=== PATIENT | male | born 1965 | race Caucasian/White ===

== ENCOUNTER 2016-09-16 09:29 | Day surgery (SDC) | payer OTHER ==
[2016-09-16] MEDS ORDERED: D5 LR 1000 ML 1,000 ML IV ONE (10:13)
[2016-09-16] MEDS ORDERED: DIPRIVAN VIAL 20 ML ONE (11:24)
[2016-09-16 14:23] VITALS: BP 119/65
== END 2016-09-16 12:05 | disposition home or self-care (01) ==
LOC: SURG1 09:29
PROVIDERS: ATTEND Internal Medicine Gastroenterology
PROC: 0DJD8ZZ Inspection of Lower Intestinal Tract, Via Natural or Artificial Opening Endoscopic (ICD-10-PCS; principal; 2016-09-16 13:00)
PROC: 0DBP8ZX Excision of Rectum, Via Natural or Artificial Opening Endoscopic, Diagnostic (ICD-10-PCS; principal; 2016-09-16 13:00)
DX: Z12.11 Encounter for screening for malignant neoplasm of colon (principal); K63.5 Polyp of colon; K64.8 Other hemorrhoids
CPT/HCPCS: A4217; J3490; J7120

== ENCOUNTER 2020-07-22 18:12 | Inpatient (IN) ==
[2020-07-22 18:36] VITALS: BMI 36.1
--- NOTE | 2020-07-22 19:08 | DR.SOBA ---
HPI Time Seen Time Seen by Provider: 07/22/20 18:47 Primary Care Physician Primary Care Physician: Megan Patterson HPI Comment HPI Comment: PATIENT IS Complaints Chief Complaint Doctors Comments: INCREASING SOB ABD RAPID HEART RATE. PATIENT HAVE HISTORY OF COPD AND A FIB. WAS IN ER YESTERDAY WITH ELEVATED COUMADIN LEVEL. THIS WAS TRATED WITH VITAMIN K. HE WAS HAVING HEMOPTESIS YESTERDAY. TODAY COUGHING, PRODUCTIVE WITH YELLOW SPUTUM. NO FEVER. PATIENT WEAK AND TIRED. HAD COVID 19 VIRUS INFECTION RECENTLY. Chief Complaint:: Patient stated worsening cough and shortness of breath. Pt stated he was discharged from ER last night after he thought he was being admitted. Pt stated he did not follow up with his PCP to get his INR rechecked and that he was unable to start his antibiotics. Pt stated he was in and out of the hospital since april due to COVID. COVID-19 Coronavirus risk:travel/contact w/high risk person: No Has patient experienced Coronavirus symptoms: No Reviewed Nurses Notes Reviewed: Yes Source History Provided: Patient Mode of Arrival Mode of Arrival: Ambulatory Timing Onset of Chief Complaint: 07/14/20 Context Onset:: At Rest PE Risk Factors:: None History of:: COPD Currently on:: Inhaled Bronchodilators Prehospital Care:: O2 and Inhaled B2 Modifying Factors Worsens:: Exertion Improves:: Sitting Up Associated Signs and Symptoms Associated Signs and Symptoms: Cough, Nasal Congestion, Chest Pain (TIGHTNESS.) and Leg Swelling If Chest Pain Quality: Pleuritic Location: Substernal If Cough Cough: Productive and Yellow PMH PMH Past Medical History: Yes Past Medical History: Anxiety, CHF, COPD, Hypertension and [place] Past Medical History Comment: Atrial fibrillation Past Surgical History: Yes Surgical History: Tonsillectomy Family History History of Family Medical Conditions: Yes Family Medical History: [place] and Heart Failure Social History Does patient currently use any type of tobacco product: Yes Have you used tobacco products in the last 12 months: Yes Type of Tobacco Use: Cigarettes Alcohol Use: Heavy and DAILY Do you use any recreational Drugs:: Yes Lives With: Significant Other Lives Where: Home Infectious screening In the last 2 months have you had wt loss of >10#?: NO Have you had fever, night sweats or hemotysis?: No Have you traveled outside the country in the last 6 months?: No Isolation: Droplet ROS Review of Systems Constitutional: See HPI, Weakness and Fatigue; negative Fever Eyes: No Symptoms Reported and See HPI ENTM: See HPI, Nose Discharge and Nose Congestion Respiratoy: See HPI, Productive Cough, Short of Breath and Wheezing Cardiovascular: See HPI, Chest Pain and Edema Gastrointestinal/Abdominal: No Symptoms Reported and See HPI; negative Abdominal Pain, Diarrhea and Vomiting Genitourinary: No Symptoms Reported and See HPI; negative Dysuria, Frequency and Hematuria Neurological: See HPI and Weakness; negative Headache and Dizziness Musculoskeletal: See HPI, Hip (LEFT HIP) and Leg (LEFT LEG.) Integumentary: No Symptoms Reported and See HPI; negative Change in Color, Rash and Juandice Hematologic/Lymphatic: No Symptoms Reported and See HPI; negative Easy Bruising and Swollen Glands Endocrine: No Symptoms Reported and See HPI; negative Increased Thirst and Increased Urine Psychiatric: No Symptoms Reported and See HPI All Other Systems: Reviewed and Negative PE Vital Signs Vitals: Temperature 97.7 F Pulse Rate 93 Respiratory Rate 23 Blood Pressure [Left Arm] 126/60 Blood Pressure 130/77 O2 Sat by Pulse Oximetry 92 General Limitations: No Limitations General Appearance: Alert and In Distress Head Head Exam: Normal Inspection and Atraumatic Eyes Eye exam: Normal Appearance and PERRL; negative Scleral Icterus and Conjunctival Injection ENT ENT Exam: Normal Exam, Normal Oropharynx, Normal External Ear Exam and TM's Normal Bilaterally Neck Neck Exam: Normal Inspection and Trachea Midline; negative Tenderness and Lymphadenopathy Chest Chest Inspection: Normal Inspection and Symmetric Chest Wall Rise; negative Tenderness Respiratory Respiratory Exam: Normal Lung Sounds Bilat; negative Accessory Muscle Use, Chest Wall Tenderness and Respiratory Distress Respiratory Exam: Bilateral: Wheezing and Bilateral: Rhonchi and Lower: Wheezing and Lower: Rhonchi Cardiovascular Cardiovascular Exam: Regular Rate, Normal Rhythm and Normal Heart Sounds; negative Systolic Murmur and Diastolic Murmur Abdominal Exam Abdominal Exam: Normal Inspection, Normal Bowel Sounds and Soft; negative Tenderness Extremities Extremities Exam: Normal Inspection, Normal Capillary Refill and Edema; negative Tenderness and Calf Tenderness Back Back Exam: Normal Inspection; negative (R) CVA Tenderness and (L) CVA Tenderness Neurologic Neurological Exam: Alert and Oriented X3; negative Motor Sensory Deficit Psychiatric Psychiatric Exam: Normal Affect and Anxious Skin Skin Exam: Warm, Dry, Intact and Normal Color MDM Additional Information Obtained Additional Information Obtained From: Old Records Differential Diagnosis Differential Diagnosis: Bronchitis, CHF, COPD, Dysrhythmia, Hypertensive Emergency, Hyponatremia, Mycardial Infarction, Pneumonia, Pneumothorax and Respiratory Insufficiency COURSE Treatment Treatment: SEE ORDERS. SOLUMEDROL 125MG IV, CARDIOZEM 10MG IV, METROPOLOL 50MG PO X 2 AND [id number] CLORIDE 20MG PO IN ER. Reevaluation 1st: Improved (SOB IMPROVING WITH OXYGEN.) Consultation Consultation Comments: DISCUSSED PATIENT WITH DR. MURRELL. HE WILL ADMIT PATIENT. Education/Counseling Education/Counseling: Patient Educated On: Diagnosis ROR Labs Reviewed Laboratory Results Reviewed?: Yes Result Diagrams: 07/24/20 05:35 07/24/20 05:35 Laboratory: WBC 13.2 X10^3/uL (3.6-10.0) H 07/22/20 18: RBC 5.77 X10^6/uL (4.7-6.0) 07/22/20 18: Hgb 17.6 g/dL (13.5-18.0) 07/22/20 18: Hct 51.5 % (42.0-54.0) 07/22/20 18: MCV 89.4 fL (80.0-100.0) 07/22/20 18: MCH 30.5 pg (27.0-34.0) 07/22/20 18: MCHC 34.1 g/dL (33.0-35.0) 07/22/20 18: RDW 14.2 % (11.6-16.5) 07/22/20 18: Plt Count 300 X10^3/uL (150.0-450.0) 07/22/20 18: MPV 7.7 fL (7.4-11.0) 07/22/20 18: Neut % (Auto) 76.4 % (42.0-75.0) H 07/22/20 18: Lymph % (Auto) 11.1 % (21.0-51.0) L 07/22/20 18: [place] % (Auto) 12.2 % (0.0-13.0) 07/22/20 18: Eos % (Auto) 0.1 % (0.9-2.9) L 07/22/20 18: Baso % (Auto) 0.2 % (0.2-1.0) 07/22/20 18: Neut # (Auto) 10.1 x10^3/uL (2.2-4.8) H 07/22/20 18: Lymph # (Auto) 1.5 X10^3/uL (1.3-2.9) 07/22/20 18: [place] # (Auto) 1.6 x10^3/uL (0.3-0.8) H 07/22/20 18: Eos # (Auto) 0.0 x10^3/uL (0.0-0.2) 07/22/20 18: Baso # (Auto) 0.0 X10^3/uL (0.0-0.1) 07/22/20 18: Absolute Nucleated RBC 0.1 /100WBC 07/22/20 18: PT 18.1 SECONDS (11.8-14.3) 07/22/20 18: INR Target Range - 07/22/20 18: INR 1.54 (0.8-1.3) H 07/22/20 18: APTT 29.2 SECONDS (22.9-36.5) 07/22/20 18: PTT Comment - 07/22/20 18: Sample Site Lr 07/22/20 20:15 ABG pH 7.540 (7.35-7.45) H 07/22/20 20:15 ABG pCO2 48.0 mmHg (35.0-45.0) H 07/22/20 20:15 ABG pO2 61.0 mmHg (80.0-100.0) L 07/22/20 20:15 ABG HCO3 41.0 mmol/L (22-26) H* 07/22/20 20:15 ABG O2 Saturation 94.0 % (90-100) 07/22/20 20:15 ABG Base Excess 16.3 mmol/L (-2.0-2.0) H 07/22/20 20:15 Wyatt Test Pos 07/22/20 20:15 A-a Gradient 107.0 mmHg 07/22/20 20:15 FiO2 32.0 07/22/20 20:15 Blood Gas Comments Dora well ae 07/22/20 20:15 Sodium 133 mmol/L (136-145) L 07/22/20 18:29 Corrected Sodium 136 mmol/L (136-145) 07/22/20 18: Potassium 3.2 mmol/L (3.5-5.1) L 07/22/20 18: Chloride 90 mmol/L (98-107) L 07/22/20 18: Carbon Dioxide 37.3 mmol/L (21-32) H 07/22/20 18: BUN 13 mg/dL (7-18) 07/22/20 18: Creatinine 0.92 mg/dL (0.70-1.30) 07/22/20 18:29 Est GFR (MDRD) Af Amer > 60 (>60) 07/22/20 18: Est GFR (MDRD) Non-Af > 60 (>60) 07/22/20 18: Glucose 224 mg/dL (65-99) H 07/22/20 18: Calcium 10.0 mg/dL (8.5-10.1) 07/22/20 18: Corrected Calcium 10.6 mg/dL (8.5-10.1) H 07/22/20 18: Total Bilirubin 0.50 mg/dL (0.2-1.0) 07/22/20 18: AST 7 Units/L (15-37) L 07/22/20 18: ALT 19 Units/L (12-78) 07/22/20 18: Alkaline Phosphatase 72 Units/L (46-116) 07/22/20 18: Creatine Kinase 48 Units/L (39-308) 07/22/20 18: CK-MB (CK-2) 1.6 ng/mL (0-4.0) 07/22/20 18: CK/CKMB % Calc 3.3 % (<4) 07/22/20: Troponin I < 0.02 ng/mL (0-1.5) 07/22/20 18: Total Protein 7.2 g/dL (6.4-8.2) 07/22/20 18: Albumin 3.3 g/dL (3.4-5.0) L 07/22/20 18: Globulin 3.9 g/dL (2.5-4.5) 07/22/20 18: Albumin/Globulin Ratio 0.8 Ratio (1.1-2.1) L 07/22/20 18:29 SARS-CoV-2 (PCR) Negative (NEGATIVE) 07/22/20 23:20 Influenza Type A (PCR) Negative (NEGATIVE) 07/22/20 23:20 Influenza Type B (PCR) Negative (NEGATIVE) 07/22/20 23:20 RSV (PCR) Negative (NEGATIVE) 07/22/20 23:20 XRAY XRAY Interpreted by: Radiologist (REPORT NOTED AND DISCUSSED WITH PATIENT.) and Self EKG Rate: 111 [place]: LAD Rhythm: Afib Block: IVCD Hypertrophy: None ST: Nonsp Opioid Opioid Risk Tool Age (Ramirez box if 16-45): No History of Preadolescent Sexual Abuse: No Total: 0 Total Score Risk Category: Low Risk Copyright: Perico DUNAWAY predicting aberrant behaviors Diagnosis Discharge Problem: Atrial fibrillation with RVR, COPD exacerbation, Shortness of breath Instructions Forms: Precautions for COVID19 Patient Portal Social Distancing
[2020-07-22] MEDS ORDERED: SOLU-Medrol 125 MG VIAL IVP ONE (19:33)
[2020-07-22] MEDS ORDERED: SOLU-Medrol 125 MG VIAL ONE ×2 (19:35)
[2020-07-22 19:36] LABS: BASOPHILS % (AUTO) 0.2 % (0.2-1.0); EOSINOPHILS % (AUTO) 0.1 % (0.9-2.9); HEMATOCRIT 51.5 % (42.0-54.0); HEMOGLOBIN 17.6 g/dL (13.5-18.0); LYMPHOCYTES # (AUTO) 1.5 X10^3/uL (1.3-2.9); LYMPHOCYTES % (AUTO) 11.1 % (21.0-51.0); MEAN CORPUSCULAR HEMOGLOBIN 30.5 pg (27.0-34.0); MEAN CORPUSCULAR HGB CONC 34.1 g/dL (33.0-35.0); MEAN CORPUSCULAR VOLUME 89.4 fL (80.0-100.0); MEAN PLATELET VOLUME 7.7 fL (7.4-11.0); MONOCYTES # (AUTO) 1.6 x10^3/uL (0.3-0.8); MONOCYTES % (AUTO) 12.2 % (0.0-13.0); NEUTROPHILS # (AUTO) 10.1 x10^3/uL (2.2-4.8); NEUTROPHILS % (AUTO) 76.4 % (42.0-75.0); PLATELET COUNT 300 X10^3/uL (150.0-450.0); RED BLOOD COUNT 5.77 X10^6/uL (4.7-6.0); RED CELL DISTRIBUTION WIDTH 14.2 % (11.6-16.5); WHITE BLOOD COUNT 13.2 X10^3/uL (3.6-10.0)
[2020-07-22 19:40] LABS: ABG BASE EXCESS 16.6 mmol/L (-2.0-2.0)
[2020-07-22 19:41] LABS: ABG ALLEN TEST POS; ABG HCO3 41.1 mmol/L (22-26)
--- NOTE | 2020-07-22 19:41 | RAD ---
EXAM: CHEST X-RAYHISTORY: Shortness of breath.TECHNIQUE: AP chest x-ray 07/22/2020 at 7:09 PM.COMPARISON: CXR dated 07/21/2020.FINDINGS:There is evidence for cardiomegaly. The pulmonary vascularity and interstitial markings are diffusely prominent, consistent with mild CHF or volume overload in the appropriate clinical setting; differential diagnosis includes (but is not limited to) mild bronchitis and interstitial pneumonia in the appropriate clinical setting.There is approximately 3 to 4 cm, stable, asymmetrical elevation of the left hemidiaphragm, with presumed compressive left basilar atelectasis; cannot rule out occult pneumonic infiltrate in this region in the appropriate clinical setting. Consider follow-up evaluation with CT for optimal assessment of the region as clinically warranted.There is no gross focal lung consolidation, pleural effusion, or pneumothorax seen. The visualized bony structures are within normal limits.IMPRESSION:1. Findings consistent with mild CHF or volume overload in the appropriate clinical setting (with mild interval improvement of infiltrates compared with the previous exam); DDX includes (but is not limited to) mild bronchitis and interstitial pneumonia in the appropriate clinical setting. Recommend clinical correlation and appropriate follow evaluation to ensure complete clearance as clinically warranted.2. Approximately 3 to 4 cm, stable, asymmetrical elevation of the left hemidiaphragm, with presumed compressive left basilar atelectasis; cannot rule out occult pneumonic infiltrate in this region in the appropriate clinical setting. Consider follow-up evaluation with CT for optimal assessment of the region as clinically warranted.Electronically signed by: Jaimie Rodrigez (Jul 22, 2020 19:39:09)
[2020-07-22 19:53] LABS: BLOOD UREA NITROGEN 13 mg/dL (7-18); CARBON DIOXIDE 37.3 mmol/L (21-32); CHLORIDE 90 mmol/L (98-107); COR NA(FOR HYPERGLY) 136 mmol/L (136-145); CREATININE 0.92 mg/dL (0.70-1.30); SODIUM 133 mmol/L (136-145); TROPONIN I < 0.02 ng/mL (0-1.5); eGFR NON BLACK RACES > 60 (>60)
[2020-07-22 19:57] LABS: ALANINE AMINOTRANSFERASE 19 Units/L (12-78); ALBUMIN 3.3 g/dL (3.4-5.0); ALKALINE PHOSPHATASE 72 Units/L (46-116); ASPARTATE AMINO TRANSFERASE 7 Units/L (15-37); CKMB % 3.3 % (<4); COR CA(FOR HYPOALB) 10.6 mg/dL (8.5-10.1); CREATINE KINASE 48 Units/L (39-308); CREATINE KINASE MB 1.6 ng/mL (0-4.0); TOTAL PROTEIN 7.2 g/dL (6.4-8.2)
[2020-07-22 20:23] LABS: ABG ALLEN TEST POS; ABG BASE EXCESS 16.3 mmol/L (-2.0-2.0)
[2020-07-22] MEDS ORDERED: CARDIZEM INJ 50 MG VIAL IVP ONE (21:51)
[2020-07-22] MEDS ORDERED: CARDIZEM INJ 50 MG VIAL ONE (21:51)
[2020-07-22] MEDS ORDERED: TESSALON PERLES PO ONE ×2 (21:55→21:56)
[2020-07-22] MEDS ORDERED: LOPRESSOR TAB 50 MG ONE (22:43)
[2020-07-22] MEDS: LOPRESSOR TAB 50 MG PO SCH (22:44)
[2020-07-22] MEDS ORDERED: LOPRESSOR TAB 50 MG PO ONE (22:50)
[2020-07-22] MEDS ORDERED: KLOR-CON PO ONE (23:00)
[2020-07-22] MEDS ORDERED: K-DUR TAB 20 MEQ PO ONE (23:56)
[2020-07-23] MEDS ORDERED: K-DUR TAB 20 MEQ PO ONE (00:05)
[2020-07-23 01:29] LABS: BILIRUBIN,URINE NEGATIVE (NEGATIVE); BLOOD/HEMOGLOBIN,URINE NEGATIVE (NEGATIVE); GLUCOSE, URINE 4+ (NEGATIVE); KETONES,URINE NEGATIVE (NEGATIVE); LEUKOCYTE ESTERASE ,URINE NEGATIVE (NEGATIVE); NITRITES,URINE NEGATIVE (NEGATIVE); PROTEIN,URINE 1+ (NEGATIVE); UROBILINOGEN,URINE NORMAL (NORMAL)
[2020-07-23] MEDS ORDERED: NS 1000 ML 1,000 ML ONE (01:37)
[2020-07-23 01:38] LABS: APPEARANCE,URINE CLEAR (CLEAR); COLOR,URINE STRAW (YELLOW)
[2020-07-23 01:39] LABS: BACTERIA,URINE NEGATIVE /HPF (NEGATIVE); RBC,URINE NONE SEEN /HPF (0-3); SQUAMOUS EPITHELIAL CELL,UR NEGATIVE /HPF (NEGATIVE)
[2020-07-23] MEDS: NS 1000 ML 1,000 ML IV SCH ×2 (01:43→16:45)
[2020-07-23 01:58] LABS: CKMB % 2.8 % (<4); CREATINE KINASE 36 Units/L (39-308); CREATINE KINASE MB < 1.0 ng/mL (0-4.0); TROPONIN I < 0.02 ng/mL (0-1.5)
[2020-07-23] MEDS ORDERED: PROVENTIL NEB TX 0.083% 2.5MG/ 3ML ONE ×2 (03:33→16:33)
[2020-07-23 04:44] LABS: BASOPHILS % (AUTO) 0.2 % (0.2-1.0); HEMATOCRIT 51.6 % (42.0-54.0); HEMOGLOBIN 17.3 g/dL (13.5-18.0); LYMPHOCYTES # (AUTO) 1.2 X10^3/uL (1.3-2.9); LYMPHOCYTES % (AUTO) 9.2 % (21.0-51.0); MEAN CORPUSCULAR HEMOGLOBIN 30.1 pg (27.0-34.0); MEAN CORPUSCULAR HGB CONC 33.5 g/dL (33.0-35.0); MEAN CORPUSCULAR VOLUME 89.7 fL (80.0-100.0); MEAN PLATELET VOLUME 7.8 fL (7.4-11.0); MONOCYTES # (AUTO) 0.7 x10^3/uL (0.3-0.8); MONOCYTES % (AUTO) 5.4 % (0.0-13.0); NEUTROPHILS # (AUTO) 10.7 x10^3/uL (2.2-4.8); NEUTROPHILS % (AUTO) 85.2 % (42.0-75.0); PLATELET COUNT 332 X10^3/uL (150.0-450.0); RED BLOOD COUNT 5.75 X10^6/uL (4.7-6.0); RED CELL DISTRIBUTION WIDTH 14.3 % (11.6-16.5); WHITE BLOOD COUNT 12.6 X10^3/uL (3.6-10.0)
[2020-07-23 05:07] LABS: ALANINE AMINOTRANSFERASE 13 Units/L (12-78); ALBUMIN 3.1 g/dL (3.4-5.0); ALKALINE PHOSPHATASE 72 Units/L (46-116); ASPARTATE AMINO TRANSFERASE 6 Units/L (15-37); BLOOD UREA NITROGEN 13 mg/dL (7-18); CALCIUM 9.5 mg/dL (8.5-10.1); CARBON DIOXIDE 35.7 mmol/L (21-32); CHLORIDE 91 mmol/L (98-107); CHOL/HDL RATIO 3.8 (0.0-5.0); CHOLESTEROL 167 mg/dL (0-200); CKMB % 2.8 % (<4); COR CA(FOR HYPOALB) 10.2 mg/dL (8.5-10.1); COR NA(FOR HYPERGLY) 137 mmol/L (136-145); CREATINE KINASE 36 Units/L (39-308); CREATINE KINASE MB < 1.0 ng/mL (0-4.0); CREATININE 0.75 mg/dL (0.70-1.30); HDL CHOLESTEROL 44 mg/dL (40-60); SODIUM 133 mmol/L (136-145); TOTAL PROTEIN 6.8 g/dL (6.4-8.2); TRIGLYCERIDES 84 mg/dL (0-150); TROPONIN I < 0.02 ng/mL (0-1.5); eGFR NON BLACK RACES > 60 (>60)
[2020-07-23] MEDS: PROVENTIL NEB TX 0.083% 2.5MG/ 3ML NEB SCH ×5 (05:15→21:05)
[2020-07-23] MEDS ORDERED: LOPRESSOR TAB 50 MG ONE (08:59)
[2020-07-23] MEDS: LOPRESSOR TAB 50 MG PO SCH ×2 (09:04→20:20)
[2020-07-23] MEDS ORDERED: TUSSIONEX PENNKINETIC SUSP PO PRN (10:34)
[2020-07-23] MEDS ORDERED: NS 100 ML IV 100 ML IV ONE (10:46)
[2020-07-23 11:04] LABS: ABG BASE EXCESS 12.9 mmol/L (-2.0-2.0)
[2020-07-23 11:05] LABS: ABG ALLEN TEST POS; ABG HCO3 38.6 mmol/L (22-26)
[2020-07-23] MEDS ORDERED: PROTONIX TAB 40 MG PO ONE (11:47)
[2020-07-23] MEDS ORDERED: PEPCID TAB 20 MG ONE (11:47)
[2020-07-23] MEDS ORDERED: PREDNISONE TAB 10 MG PO ONE ×2 (11:47→19:48)
[2020-07-23] MEDS ORDERED: FORTAZ or TAZICEF VIAL INJ ONE (11:48)
[2020-07-23] MEDS ORDERED: NS 100 ML IV + SPIKE MINIBAG* 100 ML IV ONE (11:48)
--- NOTE | 2020-07-23 11:50 | CT ---
HISTORYSOB history of asthma and COPD. Hypertension and diabetes.STUDYCTA CHESTCOMPARISONCT chest 04/10/2020TECHNIQUEMultiple CT axial images of the chest were obtained with IV contrast. Coronal and sagittal images were reconstructed. 3D reconstructions using axial MIPS imaging was performed and reviewed. Dose reduction techniques included Automated Exposure Control (AEC) and adjustment of mA and kV.Stenoses are measured using NASCET criteria.FINDINGSPulmonary arteries are identified to subsegmental branches. There are no pulmonary emboli.Infiltrating mass is present in the mediastinum. This involves the sub carinal space extending into the left hilum and the adjacent hilar mediastinum. This is larger than on the prior study suspicious for carcinoma. This causes occlusion of the left main bronchus which is also filled with mucus debris. Postobstructive pneumonitis present in the left lower lobe and left upper lobe.Right lower lobe lung nodule adjacent to the superior major fissure is stable in size measuring 14 mm. Other linear areas in the right lung are probably focal scarring or atelectasis.But there is right lung nodule in the right lower lobe which measures 19 mm. This is larger than on the prior study where it measured 14 mm. Other nodular areas are present more proximally toward the right hilum; these are also larger and could be lymph nodes or additional pulmonary nodules.Calcified pleural plaques posteriorly are stable.Low-density left thyroid nodule is stable. No axillary mass or significant axillary lymphadenopathy is identified.Small stone upper left kidney measures 3 mm. No hydronephrosis. Normal size adrenal glands. Senescent kyphosis is stable. Degenerative changes are present in the spine.IMPRESSION1. No pulmonary emboli.2. Larger mediastinal mass showing local invasion into the left hilum3. Occlusion of the left main bronchus with postobstructive pneumonitis in the left lung4. Larger right lung nodules and right hilar lymphadenopathyElectronically signed by: Huan Carpenter (Jul 23, 2020 11:48:16)
[2020-07-23] MEDS: PROTONIX TAB 40 MG PO SCH (11:54)
[2020-07-23] MEDS: FORTAZ or TAZICEF VIAL INJ 1 G in NS 100 ML IV + SPIKE MINIBAG* 100 ML IV SCH ×3 (11:54→22:02)
[2020-07-23] MEDS: PREDNISONE TAB 10 MG PO SCH ×2 (11:55→20:21)
[2020-07-23] MEDS: PULMICORT NEB TX 0.5 MG NEB SCH ×2 (11:55→21:05)
[2020-07-23] MEDS: PEPCID TAB 20 MG PO SCH ×2 (11:55→20:21)
[2020-07-23] MEDS: MUCINEX DM PO SCH ×2 (12:55→20:21)
[2020-07-23 13:14] LABS: CKMB % 3.3 % (<4); CREATINE KINASE 30 Units/L (39-308); CREATINE KINASE MB < 1.0 ng/mL (0-4.0); TROPONIN I < 0.02 ng/mL (0-1.5)
[2020-07-23] MEDS ORDERED: TESSALON PERLES PO ONE (14:11)
[2020-07-23] MEDS: TESSALON PERLES PO SCH ×2 (14:14→22:03)
[2020-07-23] MEDS ORDERED: LOVENOX INJ 30 MG SYR SC ONE (15:18)
[2020-07-23] MEDS: LOVENOX INJ 30 MG SYR SC SCH (15:22)
--- NOTE | 2020-07-23 22:02 | DR.H&P ---
H&P - History & Physical for Day of: H&P Date: 07/23/20 - Chief Complaint Chief Complaint: SOB, WEAKNESS, CHEST TIGHTNESS - History of Present Illness History of Present Illness: IS A 55 YEAR OLD PATIENT OF OURS. HE PRESENTED TO THE ER WITH REPORTS OF SHORTNESS OF BREATH. SYMPTOMS STARTED ABOUT A WEEK AGO AND HAVE PROGRESSIVELY GOTTEN WORSE. PATIENT REPORTS TESTING POSITIVE FOR COVID-19 IN MAY 2020. HE REPORTS BEING SEEN IN MULTIPLE ERs OVER THE PAST FEW WEEKS. HE ADMITS TO CHEST TIGHTNESS AND BILATERAL LOWER EXTREMITY SWELLING. HE REPORTS USE OF INHALERS AT HOME. HE REPORTS BEING UNABLE TO GET THE ANTIBIOTICS THAT PER PRESCRIBED TO HIM FILLED. HIS PMH INCLUDES ANXIETY, CHF, COPD, HYPERTENSION, A-FIB, AND CO. ON ARRIVAL TO THE ER, VITALS WERE 97.7-136-28-95%RA-130/76. LABS WERE OBTAINED. ABNORMAL LAB VALUES INCLUDE THE FOLLOWING: WBC 13.2, INR 1.54, SODIUM 133, POTASSIUM 3.2, CHLORIDE 90, CARBON DIOXIDE 37.3, GLUCOSE 224, AST 7, ALBUMIN 3.3. CARDIAC ENZYMES WITHIN NORMAL LIMITS. URINALYSIS IS UNREMARKABLE. COVID-19, INFLUENZA, AND RSV ALL NEGATIVE. AN ABG WAS OBTAINED AND REVEALED: PH 7.550, PC02 47, P02 75, HC03 41.1, 02 SAT 97, BASE EXCESS 16.6, FI02 100. A CHEST XRAY WAS OBTAINED AND REVEALED: Findings consistent with mild CHF or volume overload in the appropriate clinical setting (with mild interval improvement of infiltrates compared with the previous exam); DDX includes (but is not limited to) mild bronchitis and interstitial pneumonia in the appropriate clinical setting. Recommend clinical correlation and appropriate follow evaluation to ensure complete clearance as clinically warranted. 2. Approximately 3 to 4 cm, stable, asymmetrical elevation of the left hemidiaphragm, with presumed compressive left basilar atelectasis; cannot rule out occult pneumonic infiltrate in this region in the appropriate clinical setting. Consider follow-up evaluation with CT for optimal assessment of the region as clinically warranted. EKG REVEALED: ATRIAL FIBRILLATION WITH HR 111. IN THE ER, HE WAS GIVEN SOLU-MEDROL 125MG IV X 1, CARDIZEM 10MG IV X 1 DOSE, TESSALON PERLES 200MG PO X 1 DOSE, AND K-DUR 20MEQ PO X 1 DOSE. HE REPORTED SLIGHT IMPROVEMENT IN SYMPTOMS. HR DECREASED TO 106. HE WAS ADMITTED TO THE HOSPITAL FOR FURTHER EVALUATION AND TREATMENT OF A-FIB WITH RVR, COPD EXACERBATION, AND SHORTNESS OF BREATH. HE WAS STARTED ON NS AT KVO, PREDNISONE 10MG PO BID, LOPRESSOR 100MG PO BID, MUCINEX DM 2 TABS PO BID, FORTAZ 1G IV Q8H, PEPCID 20MG PO BID, PROTONIX 40MG PO DAILY, LOVENOX 30MG SC BID, TUSSIONEX 5ML PO Q12H PRN, PULMICORTN 1 NEB [place] BID, ALBUTEROL NEBS Q4H, AND TESSALON PERLES 200MG PO TID. WE WILL OBTAIN A CHEST CTA AND ECHO TODAY. OTHERWISE, WE PLAN TO FOLLOW UP WITH AM LABS AND CHEST XRAY AND CONTINUE TO MONITOR. TIME SPENT ON CLINICAL ASSESSMENT, REVIEWING LABS AND IMAGING, DECISION MAKING, AND DOCUMENTATION GREATER THAN 75 MINUTES. - Past Medical History Past Medical History: [place], Hypertension, Anxiety, COPD, CHF - Past Surgical History Surgical History: Tonsillectomy - Family History Family Medical History: [place], Heart Failure - Social History Does patient currently use any type of tobacco product: Yes Have you used tobacco products in the last 12 months: Yes Type of Tobacco Use: Cigarettes Alcohol Use: Heavy, DAILY Drug Use: None - Medications Home Medications: levofloxacin [From Levaquin] Adverse Reaction (Verified 07/21/20 16:52) - Review of Systems Constitutional: Weakness Eyes: No Symptoms Reported ENT: No Symptoms Reported Respiratory: Shortness of Breath, SOB with Excertion Cardiovascular: Chest Pain Gastrointestinal: No Symptoms Reported Genitourinary: No Symptoms Reported Musculoskeletal: No Symptoms Reported Skin: No Symptoms Reported Neurological: Weakness - Physical Exam Vital Signs: Temperature 97.9 F Pulse Rate [Left Brachial] 91 Pulse Rate 84 Respiratory Rate 20 Blood Pressure [Left Arm] 131/74 Blood Pressure 130/77 O2 Sat by Pulse Oximetry 94 Oriented: Normal Eyes: Normal Ear: Normal Nose: Normal Throat: Normal Respiratory: Wheezes Throughout Cardiovascular: Tachycardia, Irregular : Normal Auscultation: Bowel Sounds: Normal Palpation: Normal Tenderness: Normal Skin: Normal Musculoskeletal: Normal Psychiatric: Normal Mood Description: Calm Affect: Normal Speech Pattern: Clear - Assessment/Plan (1) Atrial fibrillation with RVR Status: Acute Plan: ADMIT, SERIAL CARDIAC ENZYMES AND EKGS, NS AT KVO, PREDNISONE 10MG PO BID, LOPRESSOR 100MG PO BID, MUCINEX DM 2 TABS PO BID, FORTAZ 1G IV Q8H, PEPCID 20MG PO BID, PROTONIX 40MG PO DAILY, LOVENOX 30MG SC BID, TUSSIONEX 5ML PO Q12H PRN, PULMICORTN 1 NEB [place] BID, ALBUTEROL NEBS Q4H, AND TESSALON PERLES 200MG PO TID. (2) COPD exacerbation Status: Acute (3) Shortness of breath Status: Acute (4) Chest pain, rule out acute myocardial infarction Status: Acute - Allergies Allergies/Adverse Reactions: Allergies Allergy/AdvReac Type Severity Reaction Status Date / Time levofloxacin [From Levaquin] AdvReac Verified 07/21/20 16:52
[2020-07-24] MEDS: PROVENTIL NEB TX 0.083% 2.5MG/ 3ML NEB SCH ×5 (00:59→21:10)
[2020-07-24] MEDS: NS 1000 ML 1,000 ML IV SCH ×2 (04:39→17:16)
[2020-07-24] MEDS: TESSALON PERLES PO SCH ×3 (05:48→21:27)
[2020-07-24] MEDS: FORTAZ or TAZICEF VIAL INJ 1 G in NS 100 ML IV + SPIKE MINIBAG* 100 ML IV SCH ×3 (05:48→21:26)
[2020-07-24 06:37] LABS: BASOPHILS % (AUTO) 0.1 % (0.2-1.0); EOSINOPHILS % (AUTO) 0.1 % (0.9-2.9); HEMATOCRIT 47.8 % (42.0-54.0); HEMOGLOBIN 16.3 g/dL (13.5-18.0); LYMPHOCYTES # (AUTO) 1.8 X10^3/uL (1.3-2.9); LYMPHOCYTES % (AUTO) 13.9 % (21.0-51.0); MEAN CORPUSCULAR HEMOGLOBIN 30.6 pg (27.0-34.0); MEAN CORPUSCULAR HGB CONC 34.1 g/dL (33.0-35.0); MEAN CORPUSCULAR VOLUME 89.9 fL (80.0-100.0); MEAN PLATELET VOLUME 7.9 fL (7.4-11.0); MONOCYTES # (AUTO) 1.7 x10^3/uL (0.3-0.8); MONOCYTES % (AUTO) 12.5 % (0.0-13.0); NEUTROPHILS # (AUTO) 9.7 x10^3/uL (2.2-4.8); NEUTROPHILS % (AUTO) 73.4 % (42.0-75.0); PLATELET COUNT 317 X10^3/uL (150.0-450.0); RED BLOOD COUNT 5.32 X10^6/uL (4.7-6.0); RED CELL DISTRIBUTION WIDTH 14.1 % (11.6-16.5); WHITE BLOOD COUNT 13.2 X10^3/uL (3.6-10.0)
[2020-07-24 06:55] LABS: ALANINE AMINOTRANSFERASE 13 Units/L (12-78); ALBUMIN 2.8 g/dL (3.4-5.0); ALKALINE PHOSPHATASE 67 Units/L (46-116); ASPARTATE AMINO TRANSFERASE < 6 Units/L (15-37); BLOOD UREA NITROGEN 13 mg/dL (7-18); CALCIUM 9.2 mg/dL (8.5-10.1); CARBON DIOXIDE 35.9 mmol/L (21-32); CHLORIDE 97 mmol/L (98-107); COR CA(FOR HYPOALB) 10.2 mg/dL (8.5-10.1); COR NA(FOR HYPERGLY) 139 mmol/L (136-145); CREATININE 0.78 mg/dL (0.70-1.30); SODIUM 136 mmol/L (136-145); TOTAL PROTEIN 6.1 g/dL (6.4-8.2); eGFR NON BLACK RACES > 60 (>60)
--- NOTE | 2020-07-24 07:46 | RAD ---
HISTORYSOBSTUDYCHEST, 1 VIEWCOMPARISONCTA of the chest July 23TECHNIQUEPortable chest x-rayFINDINGSRedemonstrated are patchy infiltrates of the left upper lobe and left lower lobe. Consolidation is noted within the left lung base. There is also elevation of the left diaphragm which could also indicate a superimposed atelectatic component. Stable calcified pleural plaque noted within the right lung contributing to region of increased density lateral to the hilum. Recent CTA of the chest showed concern for mass at the left hilum causing an obstructive process. No accumulating pleural fluid collections are identified. The heart size is stable, mildly enlarged overall. There is no evidence of free air or pneumothorax.IMPRESSIONResidual patchy infiltrates and consolidation within the left lung consistent with pneumonia with possible superimposed atelectatic component in the left lung base, with recent CTA raising concern for an obstructing left hilar mass contributing to this process.Calcified pleural plaque contributes to region of increased density in the right lung superimposed lateral to the hilum.Electronically signed by: JEZ GTZ (Jul 24, 2020 07:46:20)
[2020-07-24] MEDS ORDERED: ZANAFLEX PO PRN (08:23)
[2020-07-24] MEDS: LOPRESSOR TAB 50 MG PO SCH ×2 (08:58→21:24)
[2020-07-24] MEDS: LOVENOX INJ 30 MG SYR SC SCH (08:58)
[2020-07-24] MEDS: MUCINEX DM PO SCH (09:00)
[2020-07-24] MEDS: PEPCID TAB 20 MG PO SCH ×2 (09:01→21:25)
[2020-07-24] MEDS: PROTONIX TAB 40 MG PO SCH (09:01)
[2020-07-24] MEDS: PREDNISONE TAB 10 MG PO SCH (09:01)
[2020-07-24] MEDS ORDERED: ZESTRIL TAB 20 MG ONE (09:49)
[2020-07-24] MEDS: PULMICORT NEB TX 0.5 MG NEB SCH ×2 (09:50→21:10)
[2020-07-24] MEDS: LASIX IVP SCH (10:07)
[2020-07-24] MEDS: CELEXA PO SCH (10:07)
[2020-07-24] MEDS: NEURONTIN CAP 300 MG PO SCH ×2 (10:08→21:25)
[2020-07-24] MEDS: MICRO K EXTEN CAP 10 MEQ PO SCH (10:08)
[2020-07-24] MEDS: NORVASC TAB 10 MG PO SCH (10:09)
[2020-07-24] MEDS: UNIPHYL TAB 400 MG 24-HR PO SCH (10:10)
[2020-07-24] MEDS: ZESTRIL TAB 20 MG PO SCH (10:10)
[2020-07-24] MEDS: ROBITUSSIN DM PO SCH ×4 (11:34→21:25)
--- NOTE | 2020-07-24 12:10 | PCM.PROG ---
Progress Note - Progress Note for Day of Date of Exam: 07/24/20 - Subjective Subjective: WAS ADMITTED FOR TREATMENT OF ATRIAL FIBRILLATION WITH RVR, COPD EXACERBATION, SHORTNESS OF BREATH, AND CHEST PAIN R/O AMI. TODAY, HE IS ALERT AND ORIENTED, SITTING UP IN BED ON MORNING ROUNDS. HE CONTINUES WITH COMPLAINTS OF SHORTNESS OF BREATH, BUT REPORTS SLIGHT IMPROVEMENT IN SYMPTOMS SINCE ONE DAY PRIOR. HE IS CURRENTLY ON OXYGEN VIA NASAL CANNULA AT 3L/MIN. HE DENIES CHEST PAIN THIS MORNING. ON EXAMINATION, HEART IS REGULAR IN RATE AND RHYTHM. BILATERAL LUNGS ARE NOTED WITH SCATTERED WHEEZING THROUGOUT. ABDOMEN IS ROUND, SOFT, AND NON-TENDER WITH NORMAL BOWEL SOUNDS NOTED IN ALL QUADRANTS. BILATERAL LOWER EXTREMITIES ARE NOTED WITH 1+ PITTING EDEMA. HIS VITALS THIS M ORN ARE: 98.2-100-22-96%-142/86. LABS WERE OBTAINED. ABNORMAL LAB VALUES INCLUDE THE FOLLOWING: WBC 13.2, INR 1.44, CHLORIDE 97, CARBON DIOXIDE 35.9, GLUCOSE 233, AST <6, BNP 214, TOTAL PROTEIN 6.1, ALBUMIN 2.8. A CHEST CTA WAS OBTAINED YESTERDAY AND REVEALED: 1. No pulmonary emboli. 2. Larger mediastinal mass showing local invasion into the left hilum 3. Occlusion of the left main bronchus with postobstructive pneumonitis in the left lung 4. Larger right lung nodules and right hilar lymphadenopathy. A CHEST XRAY WAS OBTAINED AND REVEALED: Residual patchy infiltrates and consolidation within the left lung consistent with pneumonia with possible superimposed atelectatic component in the left lung base, with recent CTA raising concern for an obstructing left hilar mass contributing to this process. Calcified pleural plaque contributes to region of increased density in the right lung superimposed lateral to the hilum. NO CHANGES NOTED TO EKGS. ECHO REVEALED AN EJECTION FRACTION OF 52%. HE IS CURRENTLY RECEIVING. NS AT O, PREDNISONE 10MG PO BID, LOPRESSOR 100MG PO BID, MUCINEX DM 2 TABS PO BID, FORTAZ 1G IV Q8H, PEPCID 20MG PO BID, PROTONIX 40MG PO DAILY, LOVENOX 30MG SC BID, TUSSIONEX 5ML PO Q12H PRN, PULMICORT 1 NEB [place] BID, ALBUTEROL NEBS Q4H, AND TESSALON PERLES 200MG PO TID. TODAY, WE WILL ADD MUCOMYST TO NEB TX, ROBITUSSIN DM 10 ML PO QID, AND SOLU-MEDROL 80MG IV Q8H. WE WILL DISCONTINUE THE PREDNISONE. OTHERWISE, WE PLAN TO FOLLOW UP WITH AM LABS AND CHEST XRAY AND CONTINUE TO MONITOR. - Past Medical Family Social History Past Med/Fam/Surg Hx: No changes since H&P Allergies: Allergies levofloxacin [From Levaquin] Adverse Reaction (Verified 07/21/20 16:52) - Review of Systems ROS: No change since H&P - Vital Signs and I&O's Vital Signs: Temperature 98.2 F Pulse Rate [Left Brachial] 107 Pulse Rate 73 Respiratory Rate 22 Blood Pressure [Left Arm] 142/86 Blood Pressure 130/77 O2 Sat by Pulse Oximetry 96 Intake and Output: Intake & Output 07/22/20 07/23/20 07/24/20 07/25/20 11:59 11:59 11:59 11:59 Intake Total 140 / 140 960 / 960 Output Total 1000 / 1000 1500 / 1500 Balance -860 / -860 -540 / -540 - Physical Exam Oriented: Normal Eyes: Normal Ear: Normal Nose: Normal Throat: Normal Respiratory: Generalized, Diminished, Wheezes Cardiovascular: Normal : Normal Auscultation: Bowel Sounds: Normal Palpation: Normal Tenderness: Normal Skin: Normal Musculoskeletal: Normal Psychiatric: Normal Mood Description: Calm Affect: Normal Speech Pattern: Clear, Unclear - Laboratory and Diagnostics Result Diagrams: 07/24/20 05:35 07/24/20 05:35 Labs: Laboratory WBC 13.2 X10^3/uL (3.6-10.0) H 07/24/20 05:35 RBC 5.32 X10^6/uL (4.7-6.0) 07/24/20 05:35 Hgb 16.3 g/dL (13.5-18.0) 07/24/20 05:35 Hct 47.8 % (42.0-54.0) 07/24/20 05:35 MCV 89.9 fL (80.0-100.0) 07/24/20 05:35 MCH 30.6 pg (27.0-34.0) 07/24/20 05:35 MCHC 34.1 g/dL (33.0-35.0) 07/24/20 05:35 RDW 14.1 % (11.6-16.5) 07/24/20 05:35 Plt Count 317 X10^3/uL (150.0-450.0) 07/24/20 05:35 MPV 7.9 fL (7.4-11.0) 07/24/20 05:35 Neut % (Auto) 73.4 % (42.0-75.0) 07/24/20 05:35 Lymph % (Auto) 13.9 % (21.0-51.0) L 07/24/20 05:35 [place] % (Auto) 12.5 % (0.0-13.0) 07/24/20 05:35 Eos % (Auto) 0.1 % (0.9-2.9) L 07/24/20 05:35 Baso % (Auto) 0.1 % (0.2-1.0) L 07/24/20 05:35 Neut # (Auto) 9.7 x10^3/uL (2.2-4.8) H 07/24/20 05:35 Lymph # (Auto) 1.8 X10^3/uL (1.3-2.9) 07/24/20 05:35 [place] # (Auto) 1.7 x10^3/uL (0.3-0.8) H 07/24/20 05:35 Eos # (Auto) 0.0 x10^3/uL (0.0-0.2) 07/24/20 05:35 Baso # (Auto) 0.0 X10^3/uL (0.0-0.1) 07/24/20 05:35 Absolute Nucleated RBC 0.2 /100WBC 07/24/20 05:35 PT 17.2 SECONDS (11.8-14.3) 07/24/20 05:35 INR Target Range - 07/24/20 05:35 INR 1.44 (0.8-1.3) H 07/24/20 05:35 APTT 27.7 SECONDS (22.9-36.5) 07/24/20 05:35 PTT Comment - 07/24/20 05:35 D-Dimer < 0.27 ug/ml (0.0-0.57) 07/23/20 04:00 Sample Site Rr 07/23/20 11:00 ABG pH 7.470 (7.35-7.45) H 07/23/20 11:00 ABG pCO2 53.0 mmHg (35.0-45.0) H* 07/23/20 11:00 ABG pO2 62.0 mmHg (80.0-100.0) L 07/23/20 11:00 ABG HCO3 38.6 mmol/L (22-26) H* 07/23/20 11:00 ABG O2 Saturation 93.0 % (90-100) 07/23/20 11:00 ABG Base Excess 12.9 mmol/L (-2.0-2.0) H 07/23/20 11:00 Wyatt Test Pos 07/23/20 11:00 A-a Gradient 100.0 mmHg 07/23/20 11:00 FiO2 32.0 07/23/20 11:00 Blood Gas Comments Pt barry well cdn 07/23/20 11:00 Sodium 136 mmol/L (136-145) 07/24/20 05:35 Corrected Sodium 139 mmol/L (136-145) 07/24/20 05:35 Potassium 3.6 mmol/L (3.5-5.1) 07/24/20 05:35 Chloride 97 mmol/L (98-107) L 07/24/20 05:35 Carbon Dioxide 35.9 mmol/L (21-32) H 07/24/20 05:35 BUN 13 mg/dL (7-18) 07/24/20 05:35 Creatinine 0.78 mg/dL (0.70-1.30) 07/24/20 05:35 Est GFR (MDRD) Af Amer > 60 (>60) 07/24/20 05:35 Est GFR (MDRD) Non-Af > 60 (>60) 07/24/20 05:35 Glucose 233 mg/dL (65-99) H 07/24/20 05:35 Calcium 9.2 mg/dL (8.5-10.1) 07/24/20 05:35 Corrected Calcium 10.2 mg/dL (8.5-10.1) H 07/24/20 05:35 Magnesium 2.0 mg/dL (1.7-2.9) 07/23/20 04:00 Total Bilirubin 0.50 mg/dL (0.2-1.0) 07/24/20 05:35 AST < 6 Units/L (15-37) L 07/24/20 05:35 ALT 13 Units/L (12-78) 07/24/20 05:35 Alkaline Phosphatase 67 Units/L (46-116) 07/24/20 05:35 Creatine Kinase 30 Units/L (39-308) L 07/23/20 12:40 CK-MB (CK-2) < 1.0 ng/mL (0-4.0) 07/23/20 12:40 CK/CKMB % Calc 3.3 % (<4) 07/23/20 12:40 Troponin I < 0.02 ng/mL (0-1.5) 07/23/20 12:40 B-Natriuretic Peptide 214 pg/mL (0-79) H 07/24/20 05:35 Total Protein 6.1 g/dL (6.4-8.2) L 07/24/20 05:35 Albumin 2.8 g/dL (3.4-5.0) L 07/24/20 05:35 Globulin 3.3 g/dL (2.5-4.5) 07/24/20 05:35 Albumin/Globulin Ratio 0.8 Ratio (1.1-2.1) L 07/24/20 05:35 Triglycerides 84 mg/dL (0-150) 07/23/20 04:00 Cholesterol 167 mg/dL (0-200) 07/23/20 04:00 LDL Cholesterol, Calc 106 mg/dL (0-100) H 07/23/20 04:00 HDL Cholesterol 44 mg/dL (40-60) 07/23/20 04:00 Cholesterol/HDL Ratio 3.8 (0.0-5.0) 07/23/20 04:00 Specimen Type Clean catch urine 07/23/20 01:07 Urine Color Straw (YELLOW) 07/23/20 01:07 Urine Appearance Clear (CLEAR) 07/23/20 01:07 Urine pH 8.0 (5.0 - 8.0) 07/23/20 01:07 Ur Specific [place] 1.015 (1.000-1.030) 07/23/20 01:07 Urine Protein 1+ (NEGATIVE) 07/23/20 01:07 Urine Glucose (UA) 4+ (NEGATIVE) 07/23/20 01:07 Urine Ketones Negative (NEGATIVE) 07/23/20 01:07 Urine Occult Blood Negative (NEGATIVE) 07/23/20 01:07 Urine Nitrite Negative (NEGATIVE) 07/23/20 01:07 Urine Bilirubin Negative (NEGATIVE) 07/23/20 01:07 Urine Urobilinogen Normal (NORMAL) 07/23/20 01:07 Ur Leukocyte Esterase Negative (NEGATIVE) 07/23/20 01:07 Urine RBC None seen /HPF (0-3) 07/23/20 01:07 Urine WBC None seen /HPF (0-5) 07/23/20 01:07 Ur Squamous Epith Cells Negative /HPF (NEGATIVE) 07/23/20 01:07 Urine Bacteria Negative /HPF (NEGATIVE) 07/23/20 01:07 Ur Culture Indicated? No/not indicated 07/23/20 01:07 SARS-CoV-2 (PCR) Negative (NEGATIVE) 07/22/20 23:20 Influenza Type A (PCR) Negative (NEGATIVE) 07/22/20 23:20 Influenza Type B (PCR) Negative (NEGATIVE) 07/22/20 23:20 RSV (PCR) Negative (NEGATIVE) 07/22/20 23:20 - Plan (1) Atrial fibrillation with RVR Status: Acute Plan: SERIAL CARDIAC ENZYMES AND EKGS, NS AT KVO, SOLU-MEDROL 80MG IV Q8H, LOPRESSOR 100MG PO BID, ROBITUSSIN DM 10 ML PO QID, MUCOMYST IN NEB [place], FORTAZ 1G IV Q8H, PEPCID 20MG PO BID, PROTONIX 40MG PO DAILY, LOVENOX 30MG SC BID, TUSSIONEX 5ML PO Q12H PRN, PULMICORTN 1 NEB [place] BID, ALBUTEROL NEBS Q4H, AND TESSALON PERLES 200MG PO TID. (2) COPD exacerbation Status: Acute (3) Shortness of breath Status: Acute (4) Chest pain, rule out acute myocardial infarction Status: Acute
[2020-07-24] MEDS: SOLU-Medrol 40 MG VIAL IVP SCH ×2 (13:20→21:27)
[2020-07-24] MEDS: MUCOMYST 20% 200 MG/ML NEB SCH ×3 (13:45→21:10)
[2020-07-24] MEDS ORDERED: COUMADIN TAB 7.5 MG (JANTOVEN) PO SCH (21:00)
[2020-07-24] MEDS ORDERED: XANAX PO SCH (21:00)
[2020-07-25] MEDS: MUCOMYST 20% 200 MG/ML NEB SCH ×4 (00:30→15:57)
[2020-07-25] MEDS: PROVENTIL NEB TX 0.083% 2.5MG/ 3ML NEB SCH ×4 (00:30→15:56)
[2020-07-25] MEDS: SOLU-Medrol 40 MG VIAL IVP SCH (05:44)
[2020-07-25] MEDS: FORTAZ or TAZICEF VIAL INJ 1 G in NS 100 ML IV + SPIKE MINIBAG* 100 ML IV SCH (05:44)
[2020-07-25] MEDS: TESSALON PERLES PO SCH (05:44)
[2020-07-25] MEDS: NS 1000 ML 1,000 ML IV SCH (05:44)
--- NOTE | 2020-07-25 06:26 | RAD ---
HISTORYSOBSTUDYCHEST, 1 [id number]/28/2021.TECHNIQUEAP view of the chestFINDINGSThe cardiac silhouette is stably enlarged. Mediastinal contours appear stable within enlarged left hilum and known hilar mass. Known mediastinal adenopathy. Mild improvement in left upper lobe airspace opacities. Remaining left mid and lower lung and scattered right lung airspace opacities remain. Moderate left and small right pleural effusions. No discernible pneumothorax.IMPRESSIONImproved left upper lobe airspace opacity. Otherwise similar prior.Electronically signed by: Monty Webster (Jul 25, 2020 06:25:32)
[2020-07-25 06:49] LABS: BASOPHILS % (AUTO) 0.3 % (0.2-1.0); HEMATOCRIT 48.2 % (42.0-54.0); HEMOGLOBIN 16.2 g/dL (13.5-18.0); LYMPHOCYTES # (AUTO) 1.4 X10^3/uL (1.3-2.9); LYMPHOCYTES % (AUTO) 11.4 % (21.0-51.0); MEAN CORPUSCULAR HEMOGLOBIN 30.4 pg (27.0-34.0); MEAN CORPUSCULAR HGB CONC 33.6 g/dL (33.0-35.0); MEAN CORPUSCULAR VOLUME 90.4 fL (80.0-100.0); MEAN PLATELET VOLUME 7.6 fL (7.4-11.0); MONOCYTES # (AUTO) 0.5 x10^3/uL (0.3-0.8); MONOCYTES % (AUTO) 4.3 % (0.0-13.0); NEUTROPHILS # (AUTO) 10.1 x10^3/uL (2.2-4.8); PLATELET COUNT 313 X10^3/uL (150.0-450.0); RED BLOOD COUNT 5.33 X10^6/uL (4.7-6.0); RED CELL DISTRIBUTION WIDTH 14.1 % (11.6-16.5)
[2020-07-25 06:50] LABS: ALANINE AMINOTRANSFERASE 14 Units/L (12-78); ALBUMIN 2.9 g/dL (3.4-5.0); ALKALINE PHOSPHATASE 66 Units/L (46-116); ASPARTATE AMINO TRANSFERASE 6 Units/L (15-37); BLOOD UREA NITROGEN 14 mg/dL (7-18); CALCIUM 9.4 mg/dL (8.5-10.1); CARBON DIOXIDE 35.3 mmol/L (21-32); CHLORIDE 94 mmol/L (98-107); COR CA(FOR HYPOALB) 10.3 mg/dL (8.5-10.1); COR NA(FOR HYPERGLY) 136 mmol/L (136-145); CREATININE 0.74 mg/dL (0.70-1.30); SODIUM 132 mmol/L (136-145); TOTAL PROTEIN 6.3 g/dL (6.4-8.2); eGFR NON BLACK RACES > 60 (>60)
[2020-07-25] MEDS ORDERED: ZESTRIL TAB 20 MG ONE (09:01)
[2020-07-25] MEDS: PULMICORT NEB TX 0.5 MG NEB SCH (10:00)
[2020-07-25] MEDS: CELEXA PO SCH (10:10)
[2020-07-25] MEDS: LASIX IVP SCH (10:11)
[2020-07-25] MEDS: MICRO K EXTEN CAP 10 MEQ PO SCH (10:11)
[2020-07-25] MEDS: LOPRESSOR TAB 50 MG PO SCH (10:11)
[2020-07-25] MEDS: NEURONTIN CAP 300 MG PO SCH (10:11)
[2020-07-25] MEDS: PEPCID TAB 20 MG PO SCH (10:12)
[2020-07-25] MEDS: UNIPHYL TAB 400 MG 24-HR PO SCH (10:12)
[2020-07-25] MEDS: PROTONIX TAB 40 MG PO SCH (10:12)
[2020-07-25] MEDS: NORVASC TAB 10 MG PO SCH (10:12)
[2020-07-25] MEDS: ROBITUSSIN DM PO SCH (10:12)
[2020-07-25] MEDS: ZESTRIL TAB 20 MG PO SCH (10:13)
[2020-07-25 10:17] VITALS: BP 140/64
== END 2020-07-25 13:30 | disposition home health service (06) | DRG 309 ==
LOC: ER 18:19 → MED/SURG 07-23 00:46 → OBS 07-23 16:53
PROVIDERS: ADMIT Internal Medicine; ATTEND Internal Medicine
DX: Z86.19 Personal history of other infectious and parasitic diseases; I10 Essential (primary) hypertension; R79.1 Abnormal coagulation profile; R60.0 Localized edema; I48.91 Unspecified atrial fibrillation; R06.02 Shortness of breath; R94.31 Abnormal electrocardiogram [ECG] [EKG]; Z20.822 Contact with and (suspected) exposure to COVID-19; R07.89 Other chest pain; J44.1 Chronic obstructive pulmonary disease with (acute) exacerbation

== ENCOUNTER 2020-08-09 13:34 | Inpatient (IN) ==
--- NOTE | 2020-08-09 13:36 | DR.SOBA ---
HPI Time Seen Time Seen by Provider: 08/09/20 13:35 HPI Comment HPI Comment: This is a 55-year-old gentleman with previous history of atrial fibrillation, CAD/, recently treated in the hospital for COVID-19 infection at the end of May 2020 presents with several day history of increasing shortness of breath. Copious alcohol intake earlier today. Family called EMS due to increasing respiratory distress. Patient also has a previous history of COPD and is reportedly home O2 dependent Mode of Arrival Mode of Arrival: EMS Other History Other History: em caveat evoked due to ams PMH PMH Past Medical History: Anxiety, CHF, COPD, Hypertension and MS Past Surgical History: Yes Surgical History: Tonsillectomy Family History Family Medical History: MS and Heart Failure Social History Type of Tobacco Use: Cigarettes Do you use any recreational Drugs:: Yes ROS Review of Systems Unable to Obtain Due To: Altered mental status PE Vital Signs Vitals: Temperature 36.6 C Pulse Rate 127 Respiratory Rate 33 Blood Pressure [Left Arm] 140/64 Blood Pressure 181/121 O2 Sat by Pulse Oximetry 89 General Limitations: Altered Mental Status General Appearance: Alert and Other (non verbal, grunts yes/ no) Head Head Exam: Normal Inspection Eyes Eye exam: Normal Appearance ENT ENT Exam: Normal Exam Neck Neck Exam: Normal Inspection Chest Chest Inspection: Normal Inspection Respiratory Respiratory Exam: Prolonged Expiratory Phase and Respiratory Distress (mild); negative Accessory Muscle Use Respiratory Exam: Bilateral: Rhonchi and Bilateral: Crackles Cardiovascular Cardiovascular Exam: Tachycardia and Irregular Rhythm; negative Systolic Murmur Abdominal Exam Abdominal Exam: Normal Inspection, Normal Bowel Sounds and Soft Extremities Extremities Exam: Normal Inspection Back Back Exam: Normal Inspection Neurologic Neurological Exam: Alert and Other (grunts yes/ no, moves all 4 extremities, no facial droop, a/o x 0) Psychiatric Psychiatric Exam: Normal Affect and Normal Mood Skin Skin Exam: Warm, Dry, Intact and Normal Color MDM Additional Information Obtained Additional Information Obtained From: Old Records Differential Diagnosis Differential Diagnosis: CHF, COPD, Mycardial Infarction, Pneumonia, Pneu mothorax, Pulmonary embolism, Respiratory Insufficiency and URI COURSE Treatment Treatment: Upon my evaluation, this patient had a high probability of imminent or life-threatening deterioration due to ___acute hypoxemic respiratory failure__, which required my direct attention, intervention, and personal management. I have personally provided __35_ minutes of critical care time exclusive of time spent on separately billable procedures. Time includes review of laboratory data, radiology results, discussion with consultants, and monitoring for potential decompensation. Interventions were performed as documented above. This is a 55-year-old gentleman with previous history of COPD, CAD, A. fib, chronic hypoxemic respiratory failure, home O2 dependency whom presented to the emergency department with increasing respiratory distress. Chest x-ray obtained which demonstrated a new infiltrate. Recent history of Covid in early June. Also recently had an admission for A. fib with RVR which required intervention for rate control. Patient takes theophylline digoxin at home. ABG obtained which demonstrated hypoxemic respiratory failure. Required administration of supplemental O2 initially nasal cannula and eventually Ventimask to improve oxygenation. Lactic acid less than 2. BMP reviewed which demonstrated hypokalemia. Potassium repleted due to patient on digoxin. TNI negative. EKG reviewed which was negative for any acute ischemic changes. Patient did have episode of A. fib with RVR requiring ministration of diltiazem bolus IV and he had he started on a diltiazem drip for rate control. Patient given IV antibiotics (doxycycline and Rocephin). Patient has a previous history of allergy to fluoroquinolones. 10 mg of Decadron IV given. CTA of the chest ordered and is currently pending at this time to rule out underlying PE. Discussed all details of case with Dr. Lopez who is the hospitalist [facility] Labs Reviewed Result Diagrams: 08/09/20 14:01 08/09/20 14:01 Laboratory: WBC 19.0 X10^3/uL (3.6-10.0) H 08/09/20 14: RBC 5.67 X10^6/uL (4.7-6.0) 08/09/20 14:01 Hgb 17.7 g/dL (13.5-18.0) 08/09/20 14: Hct 50.5 % (42.0-54.0) 08/09/20 14: MCV 89.0 fL (80.0-100.0) 08/09/20 14: MCH 31.2 pg (27.0-34.0) 08/09/20 14: MCHC 35.0 g/dL (33.0-35.0) 08/09/20 14: RDW 14.1 % (11.6-16.5) 08/09/20 14:01 Plt Count 303 X10^3/uL (150.0-450.0) 08/09/20 14:01 MPV 8.4 fL (7.4-11.0) 08/09/20 14:01 Neut % (Auto) 84.0 % (42.0-75.0) H 08/09/20 14:01 Lymph % (Auto) 6.5 % (21.0-51.0) L 08/09/20 14:01 [place] % (Auto) 9.2 % (0.0-13.0) 08/09/20 14:01 Eos % (Auto) 0.1 % (0.9-2.9) L 08/09/20 14:01 Baso % (Auto) 0.2 % (0.2-1.0) 08/09/20 14:01 Neut # (Auto) 16.0 x10^3/uL (2.2-4.8) H 08/09/20 14:01 Lymph # (Auto) 1.2 X10^3/uL (1.3-2.9) L 08/09/20 14:01 [place] # (Auto) 1.7 x10^3/uL (0.3-0.8) H 08/09/20 14:01 Eos # (Auto) 0.0 x10^3/uL (0.0-0.2) 08/09/20 14:01 Baso # (Auto) 0.0 X10^3/uL (0.0-0.1) 08/09/20 14:01 Absolute Nucleated RBC 0.0 /100WBC 08/09/20 14:01 Sample Site Rrad 08/09/20 14:27 ABG pH 7.450 (7.35-7.45) 08/09/20 14:27 ABG pCO2 50.0 mmHg (35.0-45.0) H 08/09/20 14:27 ABG pO2 40.0 mmHg (80.0-100.0) L* 08/09/20 14:27 ABG HCO3 34.8 mmol/L (22-26) H* 08/09/20 14:27 ABG O2 Saturation 78.0 % (90-100) L* 08/09/20 14:27 ABG Base Excess 9.3 mmol/L (-2.0-2.0) H 08/09/20 14:27 Wyatt Test Pos 08/09/20 14:27 A-a Gradient 97.0 mmHg 08/09/20 14:27 FiO2 28.0 08/09/20 14:27 Blood Gas Comments Pt barry well elj cdn 08/09/20 14:27 Sodium 128 mmol/L (136-145) L 08/09/20 14:01 Corrected Sodium 131 mmol/L (136-145) L 08/09/20 14:01 Potassium 2.8 mmol/L (3.5-5.1) L* 08/09/20 14:01 Chloride 88 mmol/L (98-107) L 08/09/20 14:01 Carbon Dioxide 30.9 mmol/L (21-32) 08/09/20 14:01 BUN 12 mg/dL (7-18) 08/09/20 14:01 Creatinine 0.78 mg/dL (0.70-1.30) 08/09/20 14:01 Est GFR (MDRD) Af Amer > 60 (>60) 08/09/20 14:01 Est GFR (MDRD) Non-Af > 60 (>60) 08/09/20 14:01 Glucose 233 mg/dL (65-99) H 08/09/20 14:01 Lactic Acid 1.4 mmol/L (0.4-2.0) 08/09/20 14:01 Calcium 10.4 mg/dL (8.5-10.1) H 08/09/20 14:01 Corrected Calcium TNP 08/09/20 14:01 Ferritin 874 ng/mL (26-388) H 08/09/20 14:01 Total Bilirubin 0.90 mg/dL (0.2-1.0) 08/09/20 14:01 AST 7 Units/L (15-37) L 08/09/20 14:01 ALT 13 Units/L (12-78) 08/09/20 14:01 Alkaline Phosphatase 70 Units/L (46-116) 08/09/20 14:01 Lactate Dehydrogenase 217 Units/L (85-227) 08/09/20 14:01 Troponin I < 0.02 ng/mL (0-1.5) 08/09/20 14:01 B-Natriuretic Peptide 113 pg/mL (0-79) H 08/09/20 14:01 Total Protein 7.8 g/dL (6.4-8.2) 08/09/20 14:01 Albumin 3.7 g/dL (3.4-5.0) 08/09/20 14:01 Globulin 4.1 g/dL (2.5-4.5) 08/09/20 14:01 Albumin/Globulin Ratio 0.9 Ratio (1.1-2.1) L 08/09/20 14:01 Digoxin 0.34 ng/mL (0.9-2) L 08/09/20 14:01 Theophylline 3.4 ug/mL (10-20) L 08/09/20 14:01 Ethyl Alcohol mg/dL < 3 mg/dL (0-19.9) 08/09/20 14:01 SARS CoV-2 RNA Rapid DEANN Positive (NEGATIVE) A 08/09/20 15:10 EKG Rate: 123 Rhythm: Afib Block: None ST: Nonsp Opioid Opioid Risk Tool Age (Ramirez box if 16-45): No History of Preadolescent Sexual Abuse: No Total: 0 Total Score Risk Category: Low Risk Copyright: [place] predicting aberrant behaviors Diagnosis Discharge Problem: COVID-19, Atrial fibrillation with RVR, COPD exacerbation, Hemoptysis, unspecified, Lung mass Community acquired pneumonia Qualifiers: Laterality: unspecified laterality Qualified Code(s): J18.9 - Pneumonia, unspecified organism Instructions Forms: Patient Portal Social Distancing
--- NOTE | 2020-08-09 14:01 | RAD ---
HISTORYCough SOBSTUDYPortable AP [id number]/2021FINDINGSHeart size is similar/stable. Indistinct density is again suggested at the left hilar level. There is a right perihilar infiltrative process now present. No extrapulmonary air or large pleural effusion or bone destruction identified.IMPRESSIONIndistinct left hilar density consistent with mass formation described on recent chest CT. There is a new developing right perihilar infiltrate consistent with pneumonia, although the possibility of metastatic disease should be considered.Electronically signed by: LUCIUS BLACKBURN (Aug 09, 2020 13:59:30)
[2020-08-09] MEDS ORDERED: ROCEPHIN 1 GRAM IV PREMIX 1 G/50 ML IV.SOLN. IV ONE ×2 (14:12→14:17)
[2020-08-09] MEDS ORDERED: VIBRAMYCIN 100 MG in D5W 250 ML IV 250 ML IV ONE (14:13)
[2020-08-09] MEDS ORDERED: NS 250 ML IV 250 ML IV ONE (14:18)
[2020-08-09 14:22] LABS: BASOPHILS % (AUTO) 0.2 % (0.2-1.0); EOSINOPHILS % (AUTO) 0.1 % (0.9-2.9); HEMATOCRIT 50.5 % (42.0-54.0); HEMOGLOBIN 17.7 g/dL (13.5-18.0); LYMPHOCYTES # (AUTO) 1.2 X10^3/uL (1.3-2.9); LYMPHOCYTES % (AUTO) 6.5 % (21.0-51.0); MEAN CORPUSCULAR HEMOGLOBIN 31.2 pg (27.0-34.0); MEAN PLATELET VOLUME 8.4 fL (7.4-11.0); MONOCYTES # (AUTO) 1.7 x10^3/uL (0.3-0.8); MONOCYTES % (AUTO) 9.2 % (0.0-13.0); PLATELET COUNT 303 X10^3/uL (150.0-450.0); RED BLOOD COUNT 5.67 X10^6/uL (4.7-6.0); RED CELL DISTRIBUTION WIDTH 14.1 % (11.6-16.5)
[2020-08-09 14:28] LABS: BLOOD ALCOHOL < 3 mg/dL (0-19.9)
[2020-08-09] MEDS ORDERED: DECADRON INJ IVP ONE (14:31)
[2020-08-09 14:33] LABS: ABG BASE EXCESS 9.3 mmol/L (-2.0-2.0)
[2020-08-09] MEDS ORDERED: NS 500 ML IV 500 ML IV ONE ×2 (14:33→14:34)
[2020-08-09 14:34] LABS: ABG ALLEN TEST POS; ABG HCO3 34.8 mmol/L (22-26)
[2020-08-09] MEDS ORDERED: DECADRON INJ ONE (14:34)
[2020-08-09] MEDS ORDERED: CARDIZEM INJ 50 MG VIAL IVP ONE (14:34)
[2020-08-09] MEDS ORDERED: NS 100 ML IV 100 ML IV ONE (14:36)
[2020-08-09 14:37] LABS: LACTIC ACID 1.4 mmol/L (0.4-2.0)
[2020-08-09] MEDS ORDERED: CARDIZEM INJ 50 MG VIAL ONE (14:37)
[2020-08-09] MEDS ORDERED: CARDIZEM INJ 125 MG VIAL ONE (14:37)
[2020-08-09 14:38] LABS: ALANINE AMINOTRANSFERASE 13 Units/L (12-78); ALBUMIN 3.7 g/dL (3.4-5.0); ALKALINE PHOSPHATASE 70 Units/L (46-116); ASPARTATE AMINO TRANSFERASE 7 Units/L (15-37); BLOOD UREA NITROGEN 12 mg/dL (7-18); CALCIUM 10.4 mg/dL (8.5-10.1); CARBON DIOXIDE 30.9 mmol/L (21-32); CHLORIDE 88 mmol/L (98-107); COR NA(FOR HYPERGLY) 131 mmol/L (136-145); CREATININE 0.78 mg/dL (0.70-1.30); LACTATE DEHYDROGENASE 217 Units/L (85-227); SODIUM 128 mmol/L (136-145); TOTAL PROTEIN 7.8 g/dL (6.4-8.2); TROPONIN I < 0.02 ng/mL (0-1.5); eGFR NON BLACK RACES > 60 (>60)
[2020-08-09 14:53] LABS: DIGOXIN 0.34 ng/mL (0.9-2); THEOPHYLLINE 3.4 ug/mL (10-20)
[2020-08-09] MEDS: CARDIZEM INJ 125 MG VIAL 125 MG in NS 100 ML IV 100 ML IV PRN ×3 (15:04→22:05)
[2020-08-09] MEDS ORDERED: NS + KCL 20 MEQ/L 1,000 ML IV ONE (15:08)
[2020-08-09] MEDS: NS + KCL 20 MEQ/L 1,000 ML IV SCH (15:10)
[2020-08-09] MEDS ORDERED: REMDESIVIR 200 MG in NS 250 ML IV 250 ML IV ONE (15:49)
[2020-08-09] MEDS ORDERED: PHARMACY CONSULT - IVERMECTIN XX SCH (16:00)
--- NOTE | 2020-08-09 16:43 | CT ---
HISTORYCoughing up blood; Shortness of breathSTUDYCTA CHESTCOMPARISONCTA chest 07/23/2020TECHNIQUEMultiple CT axial images of the chest were obtained with IV contrast. Coronal and sagittal images were reconstructed. 3D reconstructions using axial MIPS imaging was performed and reviewed. Dose reduction techniques included Automated Exposure Control (AEC) and adjustment of mA and kV.Stenoses are measured using NASCET criteria.FINDINGSPulmonary arteries are identified to proximal segmental branches in the left lung but distal segmental branches in the right lung. There are no pulmonary emboli.Mediastinal and hilar lymphadenopathy is again noted. Today the left main bronchus is patent, where as it was occluded on the prior study. I believe there is still a very short segment blockage leading to left lower lobe.Postobstructive pneumonitis in the left lower lobe has improved. Few residual linear areas are still present. Lung nodules are stable. Multiple thyroid nodules are unchanged.Limited views of the upper abdomen show no significant abnormality.Senescent kyphosis is present with degenerative changes.IMPRESSION1. No pulmonary emboli2. Decreased left bronchial obstruction with improved left lower lobe postobstructive pneumonitis3. Stable right lung nodules, hilar lymphadenopathy, and mediastinal lymphadenopathyElectronically signed by: Huan Carpenter (Aug 09, 2020 16:42:02)
[2020-08-09] MEDS: IVERMECTIN PO SCH (20:32)
[2020-08-09] MEDS ORDERED: LOVENOX INJ 30 MG SYR SC SCH (21:00)
[2020-08-09] MEDS: BROVANA IN SCH (21:17)
[2020-08-09] MEDS: ASCORBIC ACID INJ MULTI-DOSE VIAL 1,500 MG in NS 100 ML IV 100 ML IV SCH (21:18)
[2020-08-09] MEDS: THIAMINE HCL INJ IVP SCH (21:19)
[2020-08-09] MEDS: MELATONIN PO SCH (21:20)
[2020-08-09] MEDS: PEPCID TAB 40 MG PO SCH (21:22)
[2020-08-09] MEDS: ZINC SULFATE PO SCH (21:22)
[2020-08-09] MEDS: VIBRAMYCIN PO SCH (21:22)
[2020-08-09] MEDS: PULMICORT NEB TX 0.5 MG NEB SCH (21:25)
[2020-08-09 22:09] LABS: BLOOD UREA NITROGEN 11 mg/dL (7-18); CALCIUM 9.1 mg/dL (8.5-10.1); CARBON DIOXIDE 30.4 mmol/L (21-32); CHLORIDE 90 mmol/L (98-107); COR NA(FOR HYPERGLY) 134 mmol/L (136-145); CREATININE 0.74 mg/dL (0.70-1.30); SODIUM 131 mmol/L (136-145); eGFR NON BLACK RACES > 60 (>60)
[2020-08-10] MEDS ORDERED: K-DUR TAB 20 MEQ PO PRN (00:11)
[2020-08-10] MEDS ORDERED: KLOR-CON PO PRN (00:11)
[2020-08-10] MEDS ORDERED: POTASSIUM CHL 40 MEQ/NS 0.45% 500 ML IV PRN (00:11)
[2020-08-10] MEDS ORDERED: MICRO K EXTEN CAP 10 MEQ PO PRN (00:11)
[2020-08-10] MEDS ORDERED: POTASSIUM CHL 60 MEQ/NS 0.45% 500 ML IV PRN (00:11)
[2020-08-10] MEDS ORDERED: POTASSIUM CHLORIDE LIQ 20 MEQ UDC PO PRN (00:11)
[2020-08-10] MEDS ORDERED: MAGNESIUM SULFATE 1 GRAM/100 mL PREMIX 2 G/200 ML BAG IV ONE (00:45)
[2020-08-10] MEDS: MAGNESIUM SULFATE 1 GRAM/100 mL PREMIX 1 GM/100 ML BAG IV PRN ×2 (00:54→01:54)
[2020-08-10] MEDS: ASCORBIC ACID INJ MULTI-DOSE VIAL 1,500 MG in NS 100 ML IV 100 ML IV SCH ×4 (03:23→21:53)
[2020-08-10] MEDS: NS + KCL 20 MEQ/L 1,000 ML IV SCH ×5 (04:31→23:31)
[2020-08-10 05:17] LABS: ABG BASE EXCESS 8.7 mmol/L (-2.0-2.0)
[2020-08-10 05:18] LABS: ABG ALLEN TEST POS; ABG HCO3 34.1 mmol/L (22-26)
[2020-08-10 06:30] LABS: BASOPHILS % (AUTO) 0.1 % (0.2-1.0); HEMATOCRIT 49.5 % (42.0-54.0); HEMOGLOBIN 16.4 g/dL (13.5-18.0); LYMPHOCYTES # (AUTO) 0.9 X10^3/uL (1.3-2.9); LYMPHOCYTES % (AUTO) 5.2 % (21.0-51.0); MEAN CORPUSCULAR HEMOGLOBIN 29.7 pg (27.0-34.0); MEAN CORPUSCULAR HGB CONC 33.2 g/dL (33.0-35.0); MEAN CORPUSCULAR VOLUME 89.6 fL (80.0-100.0); MEAN PLATELET VOLUME 8.9 fL (7.4-11.0); MONOCYTES # (AUTO) 1.2 x10^3/uL (0.3-0.8); MONOCYTES % (AUTO) 7.3 % (0.0-13.0); NEUTROPHILS # (AUTO) 14.8 x10^3/uL (2.2-4.8); NEUTROPHILS % (AUTO) 87.4 % (42.0-75.0); PLATELET COUNT 276 X10^3/uL (150.0-450.0); RED BLOOD COUNT 5.52 X10^6/uL (4.7-6.0); WHITE BLOOD COUNT 16.9 X10^3/uL (3.6-10.0)
[2020-08-10 06:34] LABS: ALANINE AMINOTRANSFERASE 11 Units/L (12-78); ALBUMIN 2.7 g/dL (3.4-5.0); ALKALINE PHOSPHATASE 56 Units/L (46-116); ASPARTATE AMINO TRANSFERASE 8 Units/L (15-37); BLOOD UREA NITROGEN 10 mg/dL (7-18); CALCIUM 9.3 mg/dL (8.5-10.1); CARBON DIOXIDE 32.6 mmol/L (21-32); CHLORIDE 93 mmol/L (98-107); COR CA(FOR HYPOALB) 10.3 mg/dL (8.5-10.1); COR NA(FOR HYPERGLY) 136 mmol/L (136-145); CREATININE 0.62 mg/dL (0.70-1.30); SODIUM 134 mmol/L (136-145); TOTAL PROTEIN 6.4 g/dL (6.4-8.2); eGFR NON BLACK RACES > 60 (>60)
[2020-08-10] MEDS: CARDIZEM INJ 125 MG VIAL 125 MG in NS 100 ML IV 100 ML IV PRN ×2 (06:40→15:05)
[2020-08-10] MEDS ORDERED: ZOFRAN INJ 4 MG VIAL ONE (08:27)
[2020-08-10] MEDS ORDERED: ATIVAN INJ 2 MG VIAL ONE (08:28)
[2020-08-10] MEDS: PULMICORT NEB TX 0.5 MG NEB SCH ×2 (08:30→20:25)
[2020-08-10] MEDS: BROVANA IN SCH ×2 (08:30→20:20)
[2020-08-10] MEDS: ZOFRAN INJ 4 MG VIAL IVP PRN ×2 (08:35→21:57)
[2020-08-10] MEDS: ATIVAN INJ 2 MG VIAL IVP PRN ×2 (08:35→21:58)
[2020-08-10] MEDS: PEPCID TAB 40 MG PO SCH ×3 (08:53→23:37)
[2020-08-10] MEDS: ZINC SULFATE PO SCH ×3 (08:55→23:37)
[2020-08-10] MEDS: VIBRAMYCIN PO SCH ×3 (08:56→23:37)
[2020-08-10] MEDS ORDERED: LIPITOR TAB 80 MG PO SCH (09:00)
[2020-08-10] MEDS ORDERED: VITAMIN D (1.25MG) PO SCH (09:00)
[2020-08-10] MEDS ORDERED: TRICOR TAB 160 MG PO SCH (09:00)
[2020-08-10] MEDS ORDERED: DECADRON TAB PO SCH (09:00)
[2020-08-10] MEDS ORDERED: VITAMIN A PO SCH (09:00)
[2020-08-10] MEDS: THIAMINE HCL INJ IVP SCH ×2 (09:10→21:57)
[2020-08-10] MEDS: IVERMECTIN PO SCH (09:10)
[2020-08-10 10:40] VITALS: BMI 32.0
[2020-08-10] MEDS ORDERED: TOPROL XL PO STA (16:25)
[2020-08-10] MEDS ORDERED: TOPROL XL PO ONE (16:26)
[2020-08-10] MEDS: MELATONIN PO SCH ×2 (21:55→23:36)
[2020-08-11] MEDS: K-RIDER 10 MEQ/NS 100 ML 10 MEQ/100 ML BAG IV PRN ×4 (01:00→03:06)
[2020-08-11] MEDS: ASCORBIC ACID INJ MULTI-DOSE VIAL 1,500 MG in NS 100 ML IV 100 ML IV SCH (04:18)
[2020-08-11 04:46] LABS: ABG BASE EXCESS 11.5 mmol/L (-2.0-2.0)
[2020-08-11 04:47] LABS: ABG ALLEN TEST POS; ABG HCO3 37.5 mmol/L (22-26)
[2020-08-11 06:07] LABS: BASOPHILS % (AUTO) 0.1 % (0.2-1.0); HEMATOCRIT 44.1 % (42.0-54.0); HEMOGLOBIN 14.8 g/dL (13.5-18.0); LYMPHOCYTES # (AUTO) 1.1 X10^3/uL (1.3-2.9); LYMPHOCYTES % (AUTO) 7.7 % (21.0-51.0); MEAN CORPUSCULAR HEMOGLOBIN 30.3 pg (27.0-34.0); MEAN CORPUSCULAR HGB CONC 33.5 g/dL (33.0-35.0); MEAN CORPUSCULAR VOLUME 90.3 fL (80.0-100.0); MEAN PLATELET VOLUME 8.5 fL (7.4-11.0); MONOCYTES # (AUTO) 0.9 x10^3/uL (0.3-0.8); MONOCYTES % (AUTO) 6.5 % (0.0-13.0); NEUTROPHILS # (AUTO) 12.2 x10^3/uL (2.2-4.8); NEUTROPHILS % (AUTO) 85.7 % (42.0-75.0); PLATELET COUNT 237 X10^3/uL (150.0-450.0); RED BLOOD COUNT 4.88 X10^6/uL (4.7-6.0); RED CELL DISTRIBUTION WIDTH 14.2 % (11.6-16.5); WHITE BLOOD COUNT 14.2 X10^3/uL (3.6-10.0)
[2020-08-11 06:20] LABS: ALANINE AMINOTRANSFERASE 10 Units/L (12-78); ALBUMIN 2.4 g/dL (3.4-5.0); ALKALINE PHOSPHATASE 50 Units/L (46-116); ASPARTATE AMINO TRANSFERASE 7 Units/L (15-37); BLOOD UREA NITROGEN 15 mg/dL (7-18); CALCIUM 9.3 mg/dL (8.5-10.1); CARBON DIOXIDE 33.4 mmol/L (21-32); CHLORIDE 101 mmol/L (98-107); COR CA(FOR HYPOALB) 10.6 mg/dL (8.5-10.1); COR NA(FOR HYPERGLY) 140 mmol/L (136-145); CREATININE 0.53 mg/dL (0.70-1.30); SODIUM 138 mmol/L (136-145); TOTAL PROTEIN 5.8 g/dL (6.4-8.2); eGFR NON BLACK RACES > 60 (>60)
--- NOTE | 2020-08-11 08:05 | RAD ---
HISTORYCOVID+STUDYCHEST, 1 [id number]/13/2021FINDINGSThe cardiomediastinal silhouette is stable. Similar bilateral airspace opacities. Increasing bilateral pleural effusions. The bony thorax appears intact.IMPRESSIONIncrease in pleural effusions. Otherwise, stable chest.Electronically signed by: EFE SUTHERLAND (Aug 11, 2020 08:03:45)
[2020-08-11] MEDS ORDERED: VITAMIN D3 125 mcg (5,000 UNITS) PO SCH (09:00)
[2020-08-11] MEDS ORDERED: VITAMIN A PO SCH (09:00)
[2020-08-11] MEDS: THIAMINE HCL INJ IVP SCH ×2 (09:06→20:05)
[2020-08-11] MEDS: BROVANA IN SCH ×2 (09:45→20:59)
[2020-08-11] MEDS: PULMICORT NEB TX 0.5 MG NEB SCH ×2 (09:45→20:59)
[2020-08-11] MEDS ORDERED: REMDESIVIR 200 MG in NS 250 ML IV 250 ML IV ONE (10:58)
[2020-08-11] MEDS: IVERMECTIN PO SCH (11:13)
[2020-08-11] MEDS: FORTAZ or TAZICEF VIAL INJ 1 G in NS 100 ML IV + SPIKE MINIBAG* 100 ML IV SCH ×3 (11:23→21:43)
[2020-08-11] MEDS ORDERED: NS 500 ML IV 500 ML IV ONE (12:32)
[2020-08-11] MEDS: NS 500 ML IV 500 ML IV SCH (12:35)
[2020-08-11] MEDS: REMDESIVIR 100 MG in NS 250 ML IV 250 ML IV SCH (12:54)
[2020-08-11] MEDS: PROTONIX INJ 40 MG VIAL IVP SCH ×2 (12:54→20:04)
[2020-08-11] MEDS: SOLU-Medrol 125 MG VIAL IVP SCH ×3 (12:55→22:26)
[2020-08-11] MEDS: MUCOMYST 20% 200 MG/ML NEB SCH ×3 (12:56→20:59)
[2020-08-11] MEDS: XOPENEX 1.25 MG/3 ML NEBULE NEB SCH ×3 (12:56→20:59)
[2020-08-11] MEDS: LOVENOX INJ 40 MG SYR SC SCH (13:28)
[2020-08-11] MEDS: CARDIZEM INJ 125 MG VIAL 125 MG in NS 100 ML IV 100 ML IV PRN (14:24)
[2020-08-11] MEDS: NS + KCL 20 MEQ/L 1,000 ML IV SCH ×3 (14:25→22:52)
[2020-08-11] MEDS: PEPCID 20 MG IV PREMIX IV SCH (20:04)
[2020-08-12 05:15] LABS: ABG ALLEN TEST POS; ABG BASE EXCESS 8.4 mmol/L (-2.0-2.0)
[2020-08-12] MEDS: FORTAZ or TAZICEF VIAL INJ 1 G in NS 100 ML IV + SPIKE MINIBAG* 100 ML IV SCH ×3 (05:20→21:36)
[2020-08-12] MEDS: SOLU-Medrol 125 MG VIAL IVP SCH ×4 (05:20→22:08)
[2020-08-12 05:32] LABS: BASOPHILS % (AUTO) 0.2 % (0.2-1.0); HEMATOCRIT 46.9 % (42.0-54.0); HEMOGLOBIN 15.4 g/dL (13.5-18.0); LYMPHOCYTES # (AUTO) 0.7 X10^3/uL (1.3-2.9); LYMPHOCYTES % (AUTO) 5.4 % (21.0-51.0); MEAN CORPUSCULAR HEMOGLOBIN 30.2 pg (27.0-34.0); MEAN CORPUSCULAR HGB CONC 32.7 g/dL (33.0-35.0); MEAN CORPUSCULAR VOLUME 92.1 fL (80.0-100.0); MEAN PLATELET VOLUME 8.6 fL (7.4-11.0); MONOCYTES # (AUTO) 0.3 x10^3/uL (0.3-0.8); MONOCYTES % (AUTO) 2.4 % (0.0-13.0); NEUTROPHILS # (AUTO) 11.8 x10^3/uL (2.2-4.8); PLATELET COUNT 247 X10^3/uL (150.0-450.0); RED BLOOD COUNT 5.09 X10^6/uL (4.7-6.0); RED CELL DISTRIBUTION WIDTH 14.7 % (11.6-16.5); WHITE BLOOD COUNT 12.8 X10^3/uL (3.6-10.0)
[2020-08-12 05:42] LABS: ALANINE AMINOTRANSFERASE 12 Units/L (12-78); ALBUMIN 2.8 g/dL (3.4-5.0); ALKALINE PHOSPHATASE 55 Units/L (46-116); ASPARTATE AMINO TRANSFERASE 7 Units/L (15-37); BLOOD UREA NITROGEN 20 mg/dL (7-18); CALCIUM 9.8 mg/dL (8.5-10.1); CARBON DIOXIDE 34.2 mmol/L (21-32); CHLORIDE 104 mmol/L (98-107); COR CA(FOR HYPOALB) 10.8 mg/dL (8.5-10.1); COR NA(FOR HYPERGLY) 145 mmol/L (136-145); CREATININE 0.73 mg/dL (0.70-1.30); SODIUM 141 mmol/L (136-145); TOTAL PROTEIN 6.3 g/dL (6.4-8.2); eGFR NON BLACK RACES > 60 (>60)
[2020-08-12] MEDS: NS + KCL 20 MEQ/L 1,000 ML IV SCH ×3 (06:20→22:05)
[2020-08-12 06:33] LABS: PLATELET MORPHOLOGY COMMENT NORMAL (NORMAL)
--- NOTE | 2020-08-12 07:44 | RAD ---
HISTORYSOBSTUDYCHEST, 1 [id number]/2021FINDINGSThe cardiomediastinal silhouette is stable. Similar bilateral airspace opacities and effusions. The bony thorax appears intact.IMPRESSIONNo significant change.Electronically signed by: EFE SUTHERLAND (Aug 12, 2020 07:42:20)
[2020-08-12] MEDS: PEPCID 20 MG IV PREMIX IV SCH ×2 (08:28→20:36)
[2020-08-12] MEDS: REMDESIVIR 100 MG in NS 250 ML IV 250 ML IV SCH (08:29)
[2020-08-12] MEDS: THIAMINE HCL INJ IVP SCH ×2 (08:34→20:36)
[2020-08-12] MEDS: PROTONIX INJ 40 MG VIAL IVP SCH ×2 (08:34→20:36)
[2020-08-12] MEDS: BROVANA IN SCH ×2 (09:14→20:25)
[2020-08-12] MEDS: XOPENEX 1.25 MG/3 ML NEBULE NEB SCH ×4 (09:21→20:34)
[2020-08-12] MEDS: PULMICORT NEB TX 0.5 MG NEB SCH ×2 (09:21→20:34)
[2020-08-12] MEDS: MUCOMYST 20% 200 MG/ML NEB SCH ×4 (09:21→20:34)
[2020-08-12] MEDS: IVERMECTIN PO SCH (10:22)
--- NOTE | 2020-08-12 11:03 | PCM.PROG ---
Progress Note - Progress Note for Day of Date of Exam: 08/11/20 - Subjective Subjective: WAS ADMITTED FOR TREATMENT OF PNEUMONIA DUE TO COVID-19, HYPOXIA, RESPIRATORY FAILURE, AND A-FIB. HE HAS A HISTORY OF COPD AND CHF. PATIENT ALSO HAS A SUSPECTED LUNG CANCER THAT WAS REPORTED ON HIS LAST VISIT. TODAY, HE IS ALERT AND ORIENTED, SITTING UP IN BED ON MORNING ROUNDS. HE CONTINUES WITH COMPLAINTS OF SHORTNESS OF BREATH, COUGH, AND WEAKNESS. HE ALSO REPORTS DIFFICULTY SWALLOWING. BUT REPORTS SLIGHT IMPROVEMENT IN SYMPTOMS SINCE ONE DAY PRIOR. HE IS CURRENTLY ON THE BIPAP WITH FI02 AT 50%. HIS SATURATIONS HAVE BEEN 87-99% THIS MORNING AND THROUGHOUT THE NIGHT. ON EXAMINATION, HEART IS REGULAR IN RATE. A-FIB NOTED. BILATERAL LUNGS ARE NOTED WITH SCATTERED WHEEZING THROUGOUT. ABDOMEN IS ROUND, SOFT, AND NON-TENDER WITH NORMAL BOWEL SOUNDS NOTED IN ALL QUADRANTS. BILATERAL LOWER EXTREMITIES ARE NOTED WITH 1+ PITTING EDEMA. HIS VITALS THIS MORNING ARE: 98.1-86-27-98%-115/77. LABS WERE OBTAINED. ABNORMAL LAB VALUES INCLUDE THE FOLLOWING: WBC 14.2, CARBON DIOXIDE 33.4, CREATININE 0.53, GLUCOSE 180, AST 7, ALT 10, CRP 77.50, BNP 183, TOTAL PROTEIN 5.8, ALBUMIN 2.4. AN ABG WAS OBTAINED THIS MORNING AND REVEALED: PH 7.450, PC02 54, P02 80, HC03 37.5, 02 SAT 96, BASE EXCESS 11.5, A-A GRADIENT 209, FI02 50. A CHEST XRAY WAS OBTAINED AND REVEALED: The cardiomediastinal silhouette is stable. Similar bilateral airspace opacities. Increasing bilateral pleural effusions. The bony thorax appears intact. HE IS CURRENTLY RECEIVING NS WITH 20MEQ KCL AT 125 ML/HR, REMDESIVIR 100MG IV DAILY, SOLU-MEDROL 125 IV Q6H, ASCORBIC ACID 1500MG IV Q6H, CARDIZEM DRIP, FORTAZ 1G IV Q8H, LOVENOX 40MG SC BID, PEPCID 20MG IV Q12H, PROTONIX 40MG IV BID, IVERMECTIN, ATIVAN 1MG IV Q6H PRN, ZOFRAN 8MG IV Q6H PRN, THIAMINE 200MG IV BID,XOPENEX NEB TX QID, BROVANA NEB TX BID, PULMICORT NEBS BID, MUCOMYST IN NEB TX QID, AND THE POTASSIUM AND MAGNESIUM PROTOCOLS. WE WILL CONTINUE WITH CURRENT PLAN OF CARE TODAY.OTHERWISE, WE PLAN TO FOLLOW UP WITH AM LABS AND CHEST XRAY AND CONTINUE TO MONITOR. TIME SPENT ON CLINICAL ASSESSMENT, REVIEWING LABS AND IMAGING, DECISION MAKING AND DOCUMENTATION GREATER THAN 75 MINUTES. - Past Medical Family Social History Past Med/Fam/Surg Hx: No changes since H&P Allergies: Allergies levofloxacin [From Levaquin] Adverse Reaction (Verified 07/21/20 16:52) - Review of Systems ROS: No change since H&P - Vital Signs and I&O's Vital Signs: Temperature 97.7 F Pulse Rate [Right Brachial] 89 Pulse Rate 117 Respiratory Rate 30 Blood Pressure [Left Arm] 147/68 Blood Pressure 137/77 O2 Sat by Pulse Oximetry 88 Intake and Output: Intake & Output 08/09/20 08/10/20 08/11/20 08/12/20 11:59 11:59 11:59 11:59 Intake Total 2143 / 2143 2823 / 2823 4200 / 4200 Output Total 850 / 850 900 / 900 1225 / 1225 Balance 1293 / 1293 1923 / 1923 2975 / 2975 - Physical Exam Oriented: Normal Eyes: Normal Ear: Normal Nose: Normal Throat: Normal Respiratory: Generalized, Diminished, Wheezes Cardiovascular: Irregular : Normal Auscultation: Bowel Sounds: Normal Palpation: Normal Tenderness: Normal Skin: Normal Musculoskeletal: Normal Psychiatric: Normal Mood Description: Calm Affect: Normal Speech Pattern: Appropriate - Laboratory and Diagnostics Result Diagrams: 08/12/20 05:05 08/12/20 05:05 Labs: 08/09/20 13:46 Blood Blood Culture - Preliminary 08/09/20 14:01 Blood Blood Culture - Preliminary Laboratory WBC 12.8 X10^3/uL (3.6-10.0) H 08/12/20 05:05 RBC 5.09 X10^6/uL (4.7-6.0) 08/12/20 05:05 Hgb 15.4 g/dL (13.5-18.0) 08/12/20 05:05 Hct 46.9 % (42.0-54.0) 08/12/20 05:05 MCV 92.1 fL (80.0-100.0) 08/12/20 05:05 MCH 30.2 pg (27.0-34.0) 08/12/20 05:05 MCHC 32.7 g/dL (33.0-35.0) L 08/12/20 05:05 RDW 14.7 % (11.6-16.5) 08/12/20 05:05 Plt Count 247 X10^3/uL (150.0-450.0) 08/12/20 05:05 Plt Count Comment Adequate (ADEQUATE) 08/12/20 05:05 MPV 8.6 fL (7.4-11.0) 08/12/20 05:05 Neut % (Auto) 92.0 % (42.0-75.0) H 08/12/20 05:05 Lymph % (Auto) 5.4 % (21.0-51.0) L 08/12/20 05:05 Garfield % (Auto) 2.4 % (0.0-13.0) 08/12/20 05:05 Eos % (Auto) 0.0 % (0.9-2.9) L 08/12/20 05:05 Baso % (Auto) 0.2 % (0.2-1.0) 08/12/20 05:05 Neut # (Auto) 11.8 x10^3/uL (2.2-4.8) H 08/12/20 05:05 Lymph # (Auto) 0.7 X10^3/uL (1.3-2.9) L 08/12/20 05:05 Garfield # (Auto) 0.3 x10^3/uL (0.3-0.8) 08/12/20 05:05 Eos # (Auto) 0.0 x10^3/uL (0.0-0.2) 08/12/20 05:05 Baso # (Auto) 0.0 X10^3/uL (0.0-0.1) 08/12/20 05:05 Absolute Nucleated RBC 0.0 /100WBC 08/12/20 05:05 Total Counted 100 08/12/20 05:05 Neutrophils % (Manual) 96 % (39-76) H 08/12/20 05:05 Lymphocytes % (Manual) 3 % (13-43) L 08/12/20 05:05 Monocytes % (Manual) 1 % (4-9) L 08/12/20 05:05 Plt Morphology Comment Normal (NORMAL) 08/12/20 05:05 RBC Morphology Normal (NORMAL) 08/12/20 05:05 PT 20.9 SECONDS (11.8-14.3) 08/10/20 16:56 INR Target Range - 08/10/20 16:56 INR 1.87 (0.8-1.3) H 08/10/20 16:56 Sample Site Rr 08/12/20 05:00 ABG pH 7.440 (7.35-7.45) 08/12/20 05:00 ABG pCO2 50.0 mmHg (35.0-45.0) H 08/12/20 05:00 ABG pO2 56.0 mmHg (80.0-100.0) L 08/12/20 05:00 ABG HCO3 34.0 mmol/L (22-26) H* 08/12/20 05:00 ABG O2 Saturation 90.0 % (90-100) 08/12/20 05:00 ABG Base Excess 8.4 mmol/L (-2.0-2.0) H 08/12/20 05:00 Wyatt Test Pos 08/12/20 05:00 A-a Gradient 138.0 mmHg 08/12/20 05:00 FiO2 36.0 08/12/20 05:00 Blood Gas Comments Dora well 08/12/20 05:00 Sodium 141 mmol/L (136-145) 08/12/20 05:05 Corrected Sodium 145 mmol/L (136-145) 08/12/20 05:05 Potassium 4.7 mmol/L (3.5-5.1) 08/12/20 05:05 Chloride 104 mmol/L (98-107) 08/12/20 05:05 Carbon Dioxide 34.2 mmol/L (21-32) H 08/12/20 05:05 BUN 20 mg/dL (7-18) H 08/12/20 05:05 Creatinine 0.73 mg/dL (0.70-1.30) 08/12/20 05:05 Est GFR (MDRD) Af Amer > 60 (>60) 08/12/20 05:05 Est GFR (MDRD) Non-Af > 60 (>60) 08/12/20 05:05 Glucose 259 mg/dL (65-99) H 08/12/20 05:05 Lactic Acid 1.4 mmol/L (0.4-2.0) 08/09/20 14:01 Calcium 9.8 mg/dL (8.5-10.1) 08/12/20 05:05 Corrected Calcium 10.8 mg/dL (8.5-10.1) H 08/12/20 05:05 Magnesium 2.1 mg/dL (1.7-2.9) 08/10/20 05:15 Ferritin 874 ng/mL (26-388) H 08/09/20 14:01 Total Bilirubin 0.40 mg/dL (0.2-1.0) 08/12/20 05:05 AST 7 Units/L (15-37) L 08/12/20 05:05 ALT 12 Units/L (12-78) 08/12/20 05:05 Alkaline Phosphatase 55 Units/L (46-116) 08/12/20 05:05 Lactate Dehydrogenase 217 Units/L (85-227) 08/09/20 14:01 Troponin I < 0.02 ng/mL (0-1.5) 08/09/20 14:01 C-Reactive Protein 56.10 mg/L (0-3.0) H 08/12/20 05:05 B-Natriuretic Peptide 260 pg/mL (0-79) H 08/12/20 05:05 Total Protein 6.3 g/dL (6.4-8.2) L 08/12/20 05:05 Albumin 2.8 g/dL (3.4-5.0) L 08/12/20 05:05 Globulin 3.5 g/dL (2.5-4.5) 08/12/20 05:05 Albumin/Globulin Ratio 0.8 Ratio (1.1-2.1) L 08/12/20 05:05 Digoxin 0.34 ng/mL (0.9-2) L 08/09/20 14:01 Theophylline 3.4 ug/mL (10-20) L 08/09/20 14:01 Ethyl Alcohol mg/dL < 3 mg/dL (0-19.9) 08/09/20 14:01 SARS CoV-2 RNA Rapid DEANN Positive (NEGATIVE) A 08/09/20 15:10 Blood Type B POSITIVE 08/11/20 10:50 - Plan (1) Pneumonia due to COVID-19 virus Status: Acute Plan: BIPAP, SUPPLEMENTAL OXYGEN, NS WITH 20MEQ KCL AT 125 ML/HR, REMDESIVIR 100MG IV DAILY, SOLU-MEDROL 125 IV Q6H, ASCORBIC ACID 1500MG IV Q6H, CARDIZEM DRIP, FORTAZ 1G IV Q8H, LOVENOX 40MG SC BID, PEPCID 20MG IV Q12H, PROTONIX 40MG IV BID, IVERMECTIN, ATIVAN 1MG IV Q6H PRN, ZOFRAN 8MG IV Q6H PRN, THIAMINE 200MG IV BID,XOPENEX NEB TX QID, BROVANA NEB TX BID, PULMICORT NEBS BID, MUCOMYST IN NEB TX QID, AND THE POTASSIUM AND MAGNESIUM PROTOCOLS. (2) COVID-19 Status: Acute (3) Hypoxia Status: Acute (4) Dysphagia Status: Acute Qualifiers: Dysphagia type: unspecified Qualified Code(s): R13.10 - Dysphagia, unspecified Plan: SPEECH THERAPY CONSULT (5) Atrial fibrillation with RVR Status: Chronic (6) COPD exacerbation Status: Chronic
--- NOTE | 2020-08-12 11:10 | PCM.PROG ---
Progress Note - Progress Note for Day of Date of Exam: 08/12/20 - Subjective Subjective: WAS ADMITTED FOR TREATMENT OF PNEUMONIA DUE TO COVID-19, HYPOXIA, RESPIRATORY FAILURE, AND A-FIB. HE HAS A HISTORY OF COPD AND CHF. PATIENT ALSO HAS A SUSPECTED LUNG CANCER THAT WAS REPORTED ON HIS LAST VISIT. TODAY, HE IS ALERT AND ORIENTED, SITTING UP IN BED ON MORNING ROUNDS. HE CONTINUES WITH COMPLAINTS OF SHORTNESS OF BREATH, COUGH, WEAKNESS, AND DIFFICULTY SWALLOWING. HE REPORTS SLIGHT IMPROVEMENT IN SYMPTOMS SINCE WE LAST SAW HIM. HE IS CURRENTLY ON THE BIPAP WITH FI02 AT 36%. HIS SATURATIONS HAVE BEEN 92-100% THIS MORNING AND THROUGHOUT THE NIGHT. ON EXAMINATION, HEART IS REGULAR IN RATE AND RHYTHM. BILATERAL LUNGS ARE NOTED WITH SCATTERED WHEEZING THROUGOUT. ABDOMEN IS ROUND, SOFT, AND NON-TENDER WITH NORMAL BOWEL SOUNDS NOTED IN ALL QUADRANTS. BILATERAL LOWER EXTREMITIES ARE NOTED WITH 1+ PITTING EDEMA. HIS VITALS THIS MORNING ARE: 98.4-98-21-94%-138/83. LABS WERE OBTAINED. ABNORMAL LAB VALUES INCLUDE THE FOLLOWING: WBC 12.8, CARBON DIOXIDE 34.2, BUN 20, GLUCOSE 259, AST 7, CRP 56.10, BNP 260, TOTAL PROTEIN 6.3, ALBUMIN 2.8. AN ABG WAS OBTAINED THIS MORNING AND REVEALED: PH 7.440, PC02 50, P02 56, HC03 34.0, 02 SAT 90, BASE EXCESS 8.4, A-A GRADIENT 138, FI02 36. A CHEST XRAY WAS OBTAINED AND REVEALED: The cardiomediastinal silhouette is stable. Similar bilateral airspace opacities and effusions. The bony thorax appears intact. HE IS CURRENTLY RECEIV ING NS WITH 20MEQ KCL AT 125 ML/HR, REMDESIVIR 100MG IV DAILY, SOLU-MEDROL 125 IV Q6H, ASCORBIC ACID 1500MG IV Q6H, CARDIZEM DRIP, FORTAZ 1G IV Q8H, LOVENOX 40MG SC BID, PEPCID 20MG IV Q12H, PROTONIX 40MG IV BID, IVERMECTIN, ATIVAN 1MG IV Q6H PRN, ZOFRAN 8MG IV Q6H PRN, THIAMINE 200MG IV BID,XOPENEX NEB TX QID, BROVANA NEB TX BID, PULMICORT NEBS BID, MUCOMYST IN NEB TX QID, AND THE POTASSIUM AND MAGNESIUM PROTOCOLS. WE WILL CONTINUE WITH CURRENT PLAN OF CARE TODAY. SPEECH THERAPY EVALUATED PATIENT AND RECOMMENT THICKENED LIQUIDS. OTHERWISE, WE PLAN TO FOLLOW UP WITH AM LABS AND CHEST XRAY AND CONTINUE TO MONITOR. TIME SPENT ON CLINICAL ASSESSMENT, REVIEWING LABS AND IMAGING, DECISION MAKING AND DOCUMENTATION GREATER THAN 75 MINUTES. - Past Medical Family Social History Past Med/Fam/Surg Hx: No changes since H&P Allergies: Allergies levofloxacin [From Levaquin] Adverse Reaction (Verified 07/21/20 16:52) - Review of Systems ROS: No change since H&P - Vital Signs and I&O's Vital Signs: Temperature 97.7 F Pulse Rate [Right Brachial] 89 Pulse Rate 117 Respiratory Rate 30 Blood Pressure [Left Arm] 147/68 Blood Pressure 137/77 O2 Sat by Pulse Oximetry 88 Intake and Output: Intake & Output 08/09/20 08/10/20 08/11/20 08/12/20 11:59 11:59 11:59 11:59 Intake Total 2143 / 2143 2823 / 2823 4200 / 4200 Output Total 850 / 850 900 / 900 1225 / 1225 Balance 1293 / 1293 1923 / 1923 2975 / 2975 - Physical Exam Oriented: Normal Eyes: Normal Ear: Normal Nose: Normal Throat: Normal Respiratory: Generalized, Diminished, Wheezes Cardiovascular: Irregular : Normal Auscultation: Bowel Sounds: Normal Tenderness: Normal Skin: Normal Musculoskeletal: Normal Psychiatric: Normal Mood Description: Calm Affect: Normal Speech Pattern: Appropriate - Laboratory and Diagnostics Result Diagrams: 08/12/20 05:05 08/12/20 05:05 Labs: 08/09/20 13:46 Blood Blood Culture - Preliminary 08/09/20 14:01 Blood Blood Culture - Preliminary Laboratory WBC 12.8 X10^3/uL (3.6-10.0) H 08/12/20 05:05 RBC 5.09 X10^6/uL (4.7-6.0) 08/12/20 05:05 Hgb 15.4 g/dL (13.5-18.0) 08/12/20 05:05 Hct 46.9 % (42.0-54.0) 08/12/20 05:05 MCV 92.1 fL (80.0-100.0) 08/12/20 05:05 MCH 30.2 pg (27.0-34.0) 08/12/20 05:05 MCHC 32.7 g/dL (33.0-35.0) L 08/12/20 05:05 RDW 14.7 % (11.6-16.5) 08/12/20 05:05 Plt Count 247 X10^3/uL (150.0-450.0) 08/12/20 05:05 Plt Count Comment Adequate (ADEQUATE) 08/12/20 05:05 MPV 8.6 fL (7.4-11.0) 08/12/20 05:05 Neut % (Auto) 92.0 % (42.0-75.0) H 08/12/20 05:05 Lymph % (Auto) 5.4 % (21.0-51.0) L 08/12/20 05:05 Mcclain % (Auto) 2.4 % (0.0-13.0) 08/12/20 05:05 Eos % (Auto) 0.0 % (0.9-2.9) L 08/12/20 05:05 Baso % (Auto) 0.2 % (0.2-1.0) 08/12/20 05:05 Neut # (Auto) 11.8 x10^3/uL (2.2-4.8) H 08/12/20 05:05 Lymph # (Auto) 0.7 X10^3/uL (1.3-2.9) L 08/12/20 05:05 Mcclain # (Auto) 0.3 x10^3/uL (0.3-0.8) 08/12/20 05:05 Eos # (Auto) 0.0 x10^3/uL (0.0-0.2) 08/12/20 05:05 Baso # (Auto) 0.0 X10^3/uL (0.0-0.1) 08/12/20 05:05 Absolute Nucleated RBC 0.0 /100WBC 08/12/20 05:05 Total Counted 100 08/12/20 05:05 Neutrophils % (Manual) 96 % (39-76) H 08/12/20 05:05 Lymphocytes % (Manual) 3 % (13-43) L 08/12/20 05:05 Monocytes % (Manual) 1 % (4-9) L 08/12/20 05:05 Plt Morphology Comment Normal (NORMAL) 08/12/20 05:05 RBC Morphology Normal (NORMAL) 08/12/20 05:05 PT 20.9 SECONDS (11.8-14.3) 08/10/20 16:56 INR Target Range - 08/10/20 16:56 INR 1.87 (0.8-1.3) H 08/10/20 16:56 Sample Site Rr 08/12/20 05:00 ABG pH 7.440 (7.35-7.45) 08/12/20 05:00 ABG pCO2 50.0 mmHg (35.0-45.0) H 08/12/20 05:00 ABG pO2 56.0 mmHg (80.0-100.0) L 08/12/20 05:00 ABG HCO3 34.0 mmol/L (22-26) H* 08/12/20 05:00 ABG O2 Saturation 90.0 % (90-100) 08/12/20 05:00 ABG Base Excess 8.4 mmol/L (-2.0-2.0) H 08/12/20 05:00 Wyatt Test Pos 08/12/20 05:00 A-a Gradient 138.0 mmHg 08/12/20 05:00 FiO2 36.0 08/12/20 05:00 Blood Gas Comments Dora well 08/12/20 05:00 Sodium 141 mmol/L (136-145) 08/12/20 05:05 Corrected Sodium 145 mmol/L (136-145) 08/12/20 05:05 Potassium 4.7 mmol/L (3.5-5.1) 08/12/20 05:05 Chloride 104 mmol/L (98-107) 08/12/20 05:05 Carbon Dioxide 34.2 mmol/L (21-32) H 08/12/20 05:05 BUN 20 mg/dL (7-18) H 08/12/20 05:05 Creatinine 0.73 mg/dL (0.70-1.30) 08/12/20 05:05 Est GFR (MDRD) Af Amer > 60 (>60) 08/12/20 05:05 Est GFR (MDRD) Non-Af > 60 (>60) 08/12/20 05:05 Glucose 259 mg/dL (65-99) H 08/12/20 05:05 Lactic Acid 1.4 mmol/L (0.4-2.0) 08/09/20 14:01 Calcium 9.8 mg/dL (8.5-10.1) 08/12/20 05:05 Corrected Calcium 10.8 mg/dL (8.5-10.1) H 08/12/20 05:05 Magnesium 2.1 mg/dL (1.7-2.9) 08/10/20 05:15 Ferritin 874 ng/mL (26-388) H 08/09/20 14:01 Total Bilirubin 0.40 mg/dL (0.2-1.0) 08/12/20 05:05 AST 7 Units/L (15-37) L 08/12/20 05:05 ALT 12 Units/L (12-78) 08/12/20 05:05 Alkaline Phosphatase 55 Units/L (46-116) 08/12/20 05:05 Lactate Dehydrogenase 217 Units/L (85-227) 08/09/20 14:01 Troponin I < 0.02 ng/mL (0-1.5) 08/09/20 14:01 C-Reactive Protein 56.10 mg/L (0-3.0) H 08/12/20 05:05 B-Natriuretic Peptide 260 pg/mL (0-79) H 08/12/20 05:05 Total Protein 6.3 g/dL (6.4-8.2) L 08/12/20 05:05 Albumin 2.8 g/dL (3.4-5.0) L 08/12/20 05:05 Globulin 3.5 g/dL (2.5-4.5) 08/12/20 05:05 Albumin/Globulin Ratio 0.8 Ratio (1.1-2.1) L 08/12/20 05:05 Digoxin 0.34 ng/mL (0.9-2) L 08/09/20 14:01 Theophylline 3.4 ug/mL (10-20) L 08/09/20 14:01 Ethyl Alcohol mg/dL < 3 mg/dL (0-19.9) 08/09/20 14:01 SARS CoV-2 RNA Rapid DEANN Positive (NEGATIVE) A 08/09/20 15:10 Blood Type B POSITIVE 08/11/20 10:50 - Plan (1) Pneumonia due to COVID-19 virus Status: Acute Plan: BIPAP, SUPPLEMENTAL OXYGEN, NS WITH 20MEQ KCL AT 125 ML/HR, REMDESIVIR 100MG IV DAILY, SOLU-MEDROL 125 IV Q6H, ASCORBIC ACID 1500MG IV Q6H, CARDIZEM DRIP, FORTAZ 1G IV Q8H, LOVENOX 40MG SC BID, PEPCID 20MG IV Q12H, PROTONIX 40MG IV BID, IVERMECTIN, ATIVAN 1MG IV Q6H PRN, ZOFRAN 8MG IV Q6H PRN, THIAMINE 200MG IV BID,XOPENEX NEB TX QID, BROVANA NEB TX BID, PULMICORT NEBS BID, MUCOMYST IN NEB TX QID, AND THE POTASSIUM AND MAGNESIUM PROTOCOLS. (2) COVID-19 Status: Acute (3) Hypoxia Status: Acute (4) Dysphagia Status: Acute Qualifiers: Dysphagia type: unspecified Qualified Code(s): R13.10 - Dysphagia, unspecified Plan: SPEECH THERAPY CONSULT (5) Atrial fibrillation with RVR Status: Chronic (6) COPD exacerbation Status: Chronic
[2020-08-12] MEDS: NS 500 ML IV 500 ML IV SCH (13:59)
[2020-08-12] MEDS: CARDIZEM INJ 125 MG VIAL 125 MG in NS 100 ML IV 100 ML IV PRN ×2 (14:20→22:50)
[2020-08-12] MEDS ORDERED: NS 500 ML IV 500 ML IV ONE (22:38)
[2020-08-12] MEDS ORDERED: NS 250 ML IV 250 ML IV ONE (22:38)
[2020-08-13] MEDS: ATIVAN INJ 2 MG VIAL IVP PRN ×2 (01:53→07:53)
[2020-08-13] MEDS: ZOFRAN INJ 4 MG VIAL IVP PRN (03:46)
[2020-08-13] MEDS ORDERED: VALIUM INJ ONE (04:10)
[2020-08-13] MEDS: VALIUM INJ IVP PRN ×2 (04:14→18:51)
[2020-08-13] MEDS: NS 500 ML IV 500 ML IV SCH ×2 (04:14→11:47)
[2020-08-13 04:49] LABS: ABG BASE EXCESS 10.5 mmol/L (-2.0-2.0)
[2020-08-13 04:50] LABS: ABG ALLEN TEST POS
[2020-08-13] MEDS: SOLU-Medrol 125 MG VIAL IVP SCH ×4 (05:37→22:39)
[2020-08-13] MEDS: FORTAZ or TAZICEF VIAL INJ 1 G in NS 100 ML IV + SPIKE MINIBAG* 100 ML IV SCH ×3 (05:38→21:16)
[2020-08-13 05:43] LABS: BASOPHILS % (AUTO) 0.1 % (0.2-1.0); HEMATOCRIT 43.9 % (42.0-54.0); HEMOGLOBIN 14.3 g/dL (13.5-18.0); LYMPHOCYTES # (AUTO) 0.6 X10^3/uL (1.3-2.9); LYMPHOCYTES % (AUTO) 4.4 % (21.0-51.0); MEAN CORPUSCULAR HEMOGLOBIN 29.9 pg (27.0-34.0); MEAN CORPUSCULAR HGB CONC 32.7 g/dL (33.0-35.0); MEAN CORPUSCULAR VOLUME 91.5 fL (80.0-100.0); MEAN PLATELET VOLUME 8.2 fL (7.4-11.0); MONOCYTES # (AUTO) 0.4 x10^3/uL (0.3-0.8); MONOCYTES % (AUTO) 3.1 % (0.0-13.0); NEUTROPHILS # (AUTO) 11.8 x10^3/uL (2.2-4.8); NEUTROPHILS % (AUTO) 92.4 % (42.0-75.0); PLATELET COUNT 218 X10^3/uL (150.0-450.0); RED CELL DISTRIBUTION WIDTH 14.7 % (11.6-16.5); WHITE BLOOD COUNT 12.8 X10^3/uL (3.6-10.0)
[2020-08-13 06:07] LABS: ALANINE AMINOTRANSFERASE 13 Units/L (12-78); ALBUMIN 2.8 g/dL (3.4-5.0); ALKALINE PHOSPHATASE 53 Units/L (46-116); ASPARTATE AMINO TRANSFERASE 6 Units/L (15-37); BLOOD UREA NITROGEN 21 mg/dL (7-18); CARBON DIOXIDE 34.6 mmol/L (21-32); CHLORIDE 108 mmol/L (98-107); COR NA(FOR HYPERGLY) 149 mmol/L (136-145); CREATININE 0.61 mg/dL (0.70-1.30); SODIUM 145 mmol/L (136-145); TOTAL PROTEIN 6.1 g/dL (6.4-8.2); eGFR NON BLACK RACES > 60 (>60)
[2020-08-13 06:09] LABS: BAND NEUTROPHILS % 11 % (0-10); PLATELET MORPHOLOGY COMMENT NORMAL (NORMAL)
--- NOTE | 2020-08-13 06:44 | RAD ---
HISTORYShortness of breathSTUDYChest AP [id number] July 2020 chest x-ray, CTA chest 08/09/2020FINDINGSThe heart is enlarged. No congestive heart failure is noted. There has been some increase in the right perihilar infiltrate being followed. Left perihilar infiltrate is unchanged. The patient's known mediastinal hilar adenopathy is not well demonstrated on plain film. No pleural effusions are identified. Bony thorax is unremarkable.IMPRESSIONIncreasing right perihilar infiltrateNo change left perihilar lower lobe infiltrateNo change mild cardiomegaly without congestive heart failureElectronically signed by: EFE SUTHERLAND (Aug 13, 2020 06:41:59)
[2020-08-13] MEDS: CARDIZEM INJ 125 MG VIAL 125 MG in NS 100 ML IV 100 ML IV PRN (07:30)
[2020-08-13] MEDS: NS + KCL 20 MEQ/L 1,000 ML IV SCH (07:42)
[2020-08-13] MEDS: BROVANA IN SCH ×2 (08:51→20:45)
[2020-08-13] MEDS: XOPENEX 1.25 MG/3 ML NEBULE NEB SCH ×4 (08:57→20:52)
[2020-08-13] MEDS: MUCOMYST 20% 200 MG/ML NEB SCH ×4 (08:57→20:52)
[2020-08-13] MEDS: PULMICORT NEB TX 0.5 MG NEB SCH ×2 (08:57→20:52)
[2020-08-13] MEDS ORDERED: IVERMECTIN PO ONE (09:00)
[2020-08-13] MEDS ORDERED: PHARMACY CONSULT - TPN XX SCH (10:00)
[2020-08-13] MEDS: REMDESIVIR 100 MG in NS 250 ML IV 250 ML IV SCH (11:45)
[2020-08-13] MEDS: PEPCID 20 MG IV PREMIX IV SCH ×2 (11:46→21:01)
[2020-08-13] MEDS: PROTONIX INJ 40 MG VIAL IVP SCH ×2 (11:46→21:01)
[2020-08-13] MEDS: THIAMINE HCL INJ IVP SCH ×2 (11:46→21:02)
[2020-08-13] MEDS ORDERED: NS + KCL 20 MEQ/L 1,000 ML IV SCH (12:00)
[2020-08-13] MEDS ORDERED: MVI IV SCH ×5 (12:00)
[2020-08-13] MEDS ORDERED: TRACE ELEMENTS IV SCH ×5 (12:00)
[2020-08-13] MEDS ORDERED: [UNRECOGNIZED DRUG - OTHER] IV SCH ×5 (12:00)
[2020-08-13] MEDS ORDERED: CLINIMIX IV SCH ×5 (12:00)
[2020-08-13] MEDS: TRACE ELEMENTS IV SCH ×6 (13:19)
[2020-08-13] MEDS: MVI IV SCH ×6 (13:19)
[2020-08-13] MEDS: CLINIMIX IV SCH ×6 (13:19)
[2020-08-13] MEDS: [UNRECOGNIZED DRUG - OTHER] IV SCH ×6 (13:19)
[2020-08-13] MEDS: LOVENOX INJ 40 MG SYR SC SCH (20:53)
[2020-08-13] MEDS ORDERED: LIBRIUM PO ONE ×3 (22:48→23:00)
[2020-08-13] MEDS ORDERED: ATIVAN INJ 2 MG VIAL IVP ONE (23:32)
[2020-08-14] MEDS: [UNRECOGNIZED DRUG - OTHER] IV SCH ×32 (02:03→23:00)
[2020-08-14] MEDS: MVI IV SCH ×32 (02:03→23:00)
[2020-08-14] MEDS: TRACE ELEMENTS IV SCH ×32 (02:03→23:00)
[2020-08-14] MEDS: CLINIMIX IV SCH ×32 (02:03→23:00)
[2020-08-14] MEDS: VALIUM INJ IVP PRN ×2 (02:04→11:56)
[2020-08-14] MEDS ORDERED: ATIVAN INJ 2 MG VIAL ONE (04:29)
[2020-08-14] MEDS ORDERED: ATIVAN INJ 2 MG VIAL IVP ONE (04:37)
[2020-08-14] MEDS: SOLU-Medrol 125 MG VIAL IVP SCH ×4 (04:56→22:37)
[2020-08-14] MEDS: FORTAZ or TAZICEF VIAL INJ 1 G in NS 100 ML IV + SPIKE MINIBAG* 100 ML IV SCH ×3 (05:02→22:36)
[2020-08-14 05:08] LABS: ABG BASE EXCESS 12.7 mmol/L (-2.0-2.0)
[2020-08-14 05:11] LABS: ABG ALLEN TEST POS; ABG HCO3 39.9 mmol/L (22-26)
[2020-08-14 05:18] LABS: BASOPHILS % (AUTO) 0.1 % (0.2-1.0); HEMATOCRIT 45.7 % (42.0-54.0); HEMOGLOBIN 14.6 g/dL (13.5-18.0); LYMPHOCYTES # (AUTO) 0.6 X10^3/uL (1.3-2.9); LYMPHOCYTES % (AUTO) 3.6 % (21.0-51.0); MEAN CORPUSCULAR HEMOGLOBIN 29.6 pg (27.0-34.0); MEAN CORPUSCULAR HGB CONC 31.9 g/dL (33.0-35.0); MEAN CORPUSCULAR VOLUME 92.8 fL (80.0-100.0); MEAN PLATELET VOLUME 8.7 fL (7.4-11.0); MONOCYTES # (AUTO) 0.8 x10^3/uL (0.3-0.8); MONOCYTES % (AUTO) 4.8 % (0.0-13.0); NEUTROPHILS # (AUTO) 15.9 x10^3/uL (2.2-4.8); NEUTROPHILS % (AUTO) 91.5 % (42.0-75.0); PLATELET COUNT 226 X10^3/uL (150.0-450.0); RED BLOOD COUNT 4.92 X10^6/uL (4.7-6.0); RED CELL DISTRIBUTION WIDTH 14.6 % (11.6-16.5); WHITE BLOOD COUNT 17.4 X10^3/uL (3.6-10.0)
[2020-08-14 05:31] LABS: ALANINE AMINOTRANSFERASE 18 Units/L (12-78); ALKALINE PHOSPHATASE 54 Units/L (46-116); ASPARTATE AMINO TRANSFERASE 6 Units/L (15-37); BLOOD UREA NITROGEN 22 mg/dL (7-18); CALCIUM 10.1 mg/dL (8.5-10.1); CARBON DIOXIDE 35.8 mmol/L (21-32); CHLORIDE 113 mmol/L (98-107); COR CA(FOR HYPOALB) 10.9 mg/dL (8.5-10.1); COR NA(FOR HYPERGLY) 160 mmol/L (136-145); CREATININE 0.75 mg/dL (0.70-1.30); TOTAL PROTEIN 6.3 g/dL (6.4-8.2); eGFR NON BLACK RACES > 60 (>60)
[2020-08-14 05:55] LABS: SODIUM 152 mmol/L (136-145)
[2020-08-14 05:59] LABS: BAND NEUTROPHILS % 4 % (0-10); PLATELET MORPHOLOGY COMMENT NORMAL (NORMAL)
[2020-08-14] MEDS ORDERED: HALDOL INJ IM PRN (06:13)
--- NOTE | 2020-08-14 06:21 | RAD ---
HISTORYShortness of breathSTUDYChest AP [id number]/[id number] heart remains enlarged. No congestive heart failure is noted. Bilateral perihilar infiltrates are unchanged. No pleural effusions are identified. Bony thorax is unremarkable.IMPRE SSIONNo change bilateral perihilar infiltratesNo change cardiomegaly without congestive heart failureElectronically signed by: EFE SUTHERLAND (Aug 14, 2020 06:18:51)
[2020-08-14] MEDS: CARDIZEM INJ 125 MG VIAL 125 MG in NS 100 ML IV 100 ML IV PRN ×4 (06:35→15:54)
[2020-08-14] MEDS: PULMICORT NEB TX 0.5 MG NEB SCH ×2 (08:15→20:05)
[2020-08-14] MEDS: BROVANA IN SCH ×2 (08:15→20:00)
[2020-08-14] MEDS: MUCOMYST 20% 200 MG/ML NEB SCH ×3 (08:15→20:05)
[2020-08-14] MEDS: XOPENEX 1.25 MG/3 ML NEBULE NEB SCH ×3 (08:15→20:05)
[2020-08-14] MEDS: LOVENOX INJ 40 MG SYR SC SCH ×2 (09:09→20:00)
[2020-08-14] MEDS: PROTONIX INJ 40 MG VIAL IVP SCH ×2 (09:15→20:00)
[2020-08-14] MEDS: PEPCID 20 MG IV PREMIX IV SCH ×2 (09:15→20:00)
[2020-08-14] MEDS: REMDESIVIR 100 MG in NS 250 ML IV 250 ML IV SCH (09:16)
[2020-08-14] MEDS: THIAMINE HCL INJ IVP SCH ×2 (09:16→20:00)
[2020-08-14] MEDS ORDERED: PHENOBARBITAL SODIUM INJ 65 MG VIAL IVP NR (10:00)
[2020-08-14] MEDS ORDERED: DEXTROSE 10% 1,000 ML IV PRN (10:25)
[2020-08-14 10:53] LABS: MAGNESIUM 2.5 mg/dL (1.7-2.9); PHOSPHORUS 2.8 mg/dL (2.6-4.7)
[2020-08-14 11:19] LABS: BILIRUBIN,URINE NEGATIVE (NEGATIVE); BLOOD/HEMOGLOBIN,URINE 1+ (NEGATIVE); GLUCOSE, URINE 4+ (NEGATIVE); KETONES,URINE 1+ (NEGATIVE); LEUKOCYTE ESTERASE ,URINE NEGATIVE (NEGATIVE); NITRITES,URINE NEGATIVE (NEGATIVE); PROTEIN,URINE NEGATIVE (NEGATIVE); UROBILINOGEN,URINE NORMAL (NORMAL)
[2020-08-14 11:30] LABS: APPEARANCE,URINE CLEAR (CLEAR); COLOR,URINE YELLOW (YELLOW)
[2020-08-14 11:31] LABS: BACTERIA,URINE TRACE /HPF (NEGATIVE); RBC,URINE 0-2 /HPF (0-3); SQUAMOUS EPITHELIAL CELL,UR NEGATIVE /HPF (NEGATIVE); TRANSITIONAL EPI CELLS,URINE FEW /HPF (NEGATIVE)
[2020-08-14] MEDS ORDERED: LOPRESSOR INJ 5 MG AMP IVP PRN (12:38)
[2020-08-14] MEDS: HumuLIN R SUBCUT PRN ×4 (12:50→20:00)
[2020-08-14] MEDS: GEODON INJ IM SCH ×2 (13:27→20:00)
[2020-08-14] MEDS ORDERED: LIBRIUM PO SCH (14:00)
[2020-08-14] MEDS: NS 500 ML IV 500 ML IV SCH (14:14)
[2020-08-14] MEDS: PHENOBARBITAL SODIUM INJ 65 MG VIAL IVP SCH ×2 (14:15→22:36)
[2020-08-14] MEDS ORDERED: MORPHINE SULFATE INJ 2 MG INJ IVP PRN (17:50)
[2020-08-14] MEDS ORDERED: VERSED IV PREMIX 100 MG/100 ML IV.SOLN IV PRN (21:08)
[2020-08-14] MEDS: MORPHINE SULFATE PCA 30 MG IV SCH (22:25)
[2020-08-15] MEDS: CARDIZEM INJ 125 MG VIAL 125 MG in NS 100 ML IV 100 ML IV PRN ×2
[2020-08-15] MEDS: MORPHINE SULFATE PCA 30 MG IV SCH ×2 (04:40→09:25)
[2020-08-15] MEDS: SOLU-Medrol 125 MG VIAL IVP SCH (05:28)
[2020-08-15] MEDS: FORTAZ or TAZICEF VIAL INJ 1 G in NS 100 ML IV + SPIKE MINIBAG* 100 ML IV SCH (05:57)
[2020-08-15] MEDS ORDERED: MORPHINE SULFATE PCA 30 MG IV SCH (10:16)
[2020-08-15 12:26] VITALS: BP 40/25
--- NOTE | 2020-09-24 13:03 | PCM.PROG ---
Progress Note - Progress Note for Day of Date of Exam: 08/13/20 - Subjective Subjective: WAS ADMITTED FOR TREATMENT OF PNEUMONIA DUE TO COVID-19, HYPOXIA, RESPIRATORY FAILURE, AND A-FIB. HE HAS A HISTORY OF COPD AND CHF. PATIENT ALSO HAS A SUSPECTED LUNG CANCER THAT WAS REPORTED ON HIS LAST VISIT. TODAY, HE IS LYING IN BED WITH EYES CLOSED ON MORNING ROUNDS. HE AWAKENS TO VERBAL STIMULI. HE CONTINUES WITH COMPLAINTS OF SHORTNESS OF BREATH, COUGH, WEAKNESS, AND DIFFICULTY SWALLOWING. HE DENIES SIGNIFICANT IMPROVEMENT IN SYMTPOMS. STAFF REPORTS THAT HE HAS HAD INTERMITTENT CONFUSION. HE IS CURRENTLY ON THE BIPAP WITH FI02 AT 50%. HIS SATURATIONS HAVE BEEN 90-100% WITH AN OCCASIONAL DROP TO THE 80s, HOWEVER, HE RECOVERS WELL. THIS MORNING AND THROUGHOUT THE NIGHT. ON EXAMINATION, HEART IS REGULAR IN RATE AND RHYTHM. BILATERAL LUNGS ARE NOTED WITH SCATTERED WHEEZING THROUGOUT. ABDOMEN IS ROUND, SOFT, AND NON-TENDER WITH NORMAL BOWEL SOUNDS NOTED IN ALL QUADRANTS. BILATERAL LOWER EXTREMITIES ARE NOTED WITH 1+ PITTING EDEMA. HIS VITALS THIS MORNING ARE: 97.5-98-17-100%-134/64. LABS WERE OBTAINED. ABNORMAL LAB VALUES INCLUDE THE FOLLOWING: WBC 12.8, CHLORIDE 108, CARBON DIOXIDE 34.6, BUN 21, CREATININE 0.61, GLUCOSE 261, AST 6, CRP 29.70, BNP 265, TOTAL PROTEIN 6.1, ALBUMIN 2.8. AN ABG WAS OBTAINED THIS MORNING AND REVEALED: PH 7.420, PC02 57, P02 74, HC03 37, 02 SAT 95, BASE EXCESS 10.5, A-A GRADIENT 425, FI02 80. BLOOD CULTURES REVEAL GROWTH OF ACINETOBACTER LWOFFII. A CHEST XRAY WAS OBTAINED AND REVEALED: Increasing right perihilar infiltrate. No change left perihilar lower lobe infiltrate. No change mild cardiomegaly without congestive heart failure. HE IS CURRENTLY RECEIVING NS WITH 20MEQ KCL AT 125 ML/HR, REMDESIVIR 100MG IV DAILY, SOLU-MEDROL 125 IV Q6H, ASCORBIC ACID 1500MG IV Q6H, CARDIZEM DRIP, FORTAZ 1G IV Q8H, LOVENOX 40MG SC BID, PEPCID 20MG IV Q12H, PROTONIX 40MG IV BID, IVERMECTIN, ATIVAN 1MG IV Q6H PRN, ZOFRAN 8MG IV Q6H PRN, THIAMINE 200MG IV BID,XOPENEX NEB TX QID, BROVANA NEB TX BID, PULMICORT NEBS BID, MUCOMYST IN NEB TX QID, AND THE POTASSIUM AND MAGNESIUM PROTOCOLS. WE WILL CONTINUE WITH CURRENT PLAN OF CARE TODAY AND ADD TPN. OTHERWISE, WE PLAN TO FOLLOW UP WITH AM LABS AND CHEST XRAY AND CONTINUE TO MONITOR. TIME SPENT ON CLINICAL ASSESSMENT, REVIEWING LABS AND IMAGING, DECISION MAKING AND DOCUMENTATION GREATER THAN 75 MINUTES. - Past Medical Family Social History Past Med/Fam/Surg Hx: No changes since H&P Allergies: Allergies levofloxacin [From Levaquin] Adverse Reaction (Verified 07/21/20 16:52) - Review of Systems ROS: No change since H&P - Vital Signs and I&O's Vital Signs: Temperature 97.5 F Pulse Rate [Right Brachial] 89 Pulse Rate 40 Respiratory Rate 10 Blood Pressure [Left Arm] 147/68 Blood Pressure 40/25 O2 Sat by Pulse Oximetry 70 - Physical Exam Oriented: Person, Place Eyes: Normal Ear: Normal Nose: Normal Throat: Normal Respiratory: Generalized, Diminished, Wheezes Cardiovascular: Irregular : Normal Auscultation: Bowel Sounds: Normal Palpation: Normal Tenderness: Normal Skin: Normal Musculoskeletal: Normal Psychiatric: Normal Mood Description: Calm Affect: Normal Speech Pattern: Delayed - Laboratory and Diagnostics Result Diagrams: 08/14/20 04:28 08/14/20 19:16 Labs: 08/09/20 14:01 Blood Blood Culture - Final 08/09/20 13:46 Blood Blood Culture - Final Acinetobacter Lwoffii Laboratory WBC 17.4 X10^3/uL (3.6-10.0) H 08/14/20 04:28 RBC 4.92 X10^6/uL (4.7-6.0) 08/14/20 04:28 Hgb 14.6 g/dL (13.5-18.0) 08/14/20 04:28 Hct 45.7 % (42.0-54.0) 08/14/20 04:28 MCV 92.8 fL (80.0-100.0) 08/14/20 04:28 MCH 29.6 pg (27.0-34.0) 08/14/20 04:28 MCHC 31.9 g/dL (33.0-35.0) L 08/14/20 04:28 RDW 14.6 % (11.6-16.5) 08/14/20 04:28 Plt Count 226 X10^3/uL (150.0-450.0) 08/14/20 04:28 Plt Count Comment Adequate (ADEQUATE) 08/14/20 04:28 MPV 8.7 fL (7.4-11.0) 08/14/20 04:28 Neut % (Auto) 91.5 % (42.0-75.0) H 08/14/20 04:28 Lymph % (Auto) 3.6 % (21.0-51.0) L 08/14/20 04:28 [place] % (Auto) 4.8 % (0.0-13.0) 08/14/20 04:28 Eos % (Auto) 0.0 % (0.9-2.9) L 08/14/20 04:28 Baso % (Auto) 0.1 % (0.2-1.0) L 08/14/20 04:28 Neut # (Auto) 15.9 x10^3/uL (2.2-4.8) H 08/14/20 04:28 Lymph # (Auto) 0.6 X10^3/uL (1.3-2.9) L 08/14/20 04:28 [place] # (Auto) 0.8 x10^3/uL (0.3-0.8) 08/14/20 04:28 Eos # (Auto) 0.0 x10^3/uL (0.0-0.2) 08/14/20 04:28 Baso # (Auto) 0.0 X10^3/uL (0.0-0.1) 08/14/20 04:28 Absolute Nucleated RBC 0.0 /100WBC 08/14/20 04:28 Total Counted 100 08/14/20 04:28 Neutrophils % (Manual) 92 % (39-76) H 08/14/20 04:28 Band Neutrophils % 4 % (0-10) 08/14/20 04:28 Lymphocytes % (Manual) 2 % (13-43) L 08/14/20 04:28 Monocytes % (Manual) 2 % (4-9) L 08/14/20 04:28 Plt Morphology Comment Normal (NORMAL) 08/14/20 04:28 RBC Morphology Normal (NORMAL) 08/14/20 04:28 PT 20.9 SECONDS (11.8-14.3) 08/10/20 16:56 INR Target Range - 08/10/20 16:56 INR 1.87 (0.8-1.3) H 08/10/20 16:56 Sample Site Rrad 08/14/20 05:06 ABG pH 7.410 (7.35-7.45) 08/14/20 05:06 ABG pCO2 63.0 mmHg (35.0-45.0) H* 08/14/20 05:06 ABG pO2 85.0 mmHg (80.0-100.0) 08/14/20 05:06 ABG HCO3 39.9 mmol/L (22-26) H* 08/14/20 05:06 ABG O2 Saturation 96.0 % (90-100) 08/14/20 05:06 ABG Base Excess 12.7 mmol/L (-2.0-2.0) H 08/14/20 05:06 Wyatt Test Pos 08/14/20 05:06 A-a Gradient 371.0 mmHg 08/14/20 05:06 FiO2 75.0 08/14/20 05:06 Blood Gas Comments Dora abg well-mtf 08/14/20 05:06 Sodium 152 mmol/L (136-145) H* 08/14/20 04:28 Corrected Sodium 160 mmol/L (136-145) H 08/14/20 04:28 Potassium 3.7 mmol/L (3.5-5.1) 08/14/20 04:28 Chloride 113 mmol/L (98-107) H 08/14/20 04:28 Carbon Dioxide 35.8 mmol/L (21-32) H 08/14/20 04:28 BUN 22 mg/dL (7-18) H 08/14/20 04:28 Creatinine 0.75 mg/dL (0.70-1.30) 08/14/20 04:28 Est GFR (MDRD) Af Amer > 60 (>60) 08/14/20 04:28 Est GFR (MDRD) Non-Af > 60 (>60) 08/14/20 04:28 Glucose 484 mg/dL (65-99) H 08/14/20 19:16 POC Glucose (mg/dL) 412 mg/dL (65-99) H 08/14/20 18:49 Lactic Acid 1.4 mmol/L (0.4-2.0) 08/09/20 14:01 Calcium 10.1 mg/dL (8.5-10.1) 08/14/20 04:28 Corrected Calcium 10.9 mg/dL (8.5-10.1) H 08/14/20 04:28 Phosphorus 2.8 mg/dL (2.6-4.7) 08/14/20 04:28 Magnesium 2.5 mg/dL (1.7-2.9) 08/14/20 04:28 Ferritin 874 ng/mL (26-388) H 08/09/20 14:01 Total Bilirubin 0.40 mg/dL (0.2-1.0) 08/14/20 04:28 AST 6 Units/L (15-37) L 08/14/20 04:28 ALT 18 Units/L (12-78) 08/14/20 04:28 Alkaline Phosphatase 54 Units/L (46-116) 08/14/20 04:28 Lactate Dehydrogenase 217 Units/L (85-227) 08/09/20 14:01 Troponin I < 0.02 ng/mL (0-1.5) 08/09/20 14:01 C-Reactive Protein 19.90 mg/L (0-3.0) H 08/14/20 04:28 B-Natriuretic Peptide 294 pg/mL (0-79) H 08/14/20 04:28 Total Protein 6.3 g/dL (6.4-8.2) L 08/14/20 04:28 Albumin 3.0 g/dL (3.4-5.0) L 08/14/20 04:28 Globulin 3.3 g/dL (2.5-4.5) 08/14/20 04:28 Albumin/Globulin Ratio 0.9 Ratio (1.1-2.1) L 08/14/20 04:28 Prealbumin 15.6 mg/dL (18-35.7) L 08/13/20 05:11 Triglycerides 121 mg/dL (0-150) 08/14/20 04:28 Specimen Type Catherized urine 08/14/20 11:11 Urine Color Yellow (YELLOW) 08/14/20 11:11 Urine Appearance Clear (CLEAR) 08/14/20 11:11 Urine pH 5.0 (5.0 - 8.0) 08/14/20 11:11 Ur Specific [place] 1.010 (1.000-1.030) 08/14/20 11:11 Urine Protein Negative (NEGATIVE) 08/14/20 11:11 Urine Glucose (UA) 4+ (NEGATIVE) 08/14/20 11:11 Urine Ketones 1+ (NEGATIVE) 08/14/20 11:11 Urine Occult Blood 1+ (NEGATIVE) 08/14/20 11:11 Urine Nitrite Negative (NEGATIVE) 08/14/20 11:11 Urine Bilirubin Negative (NEGATIVE) 08/14/20 11:11 Urine Urobilinogen Normal (NORMAL) 08/14/20 11:11 Ur Leukocyte Esterase Negative (NEGATIVE) 08/14/20 11:11 Urine RBC 0-2 /HPF (0-3) 08/14/20 11:11 Urine WBC 0-2 /HPF (0-5) 08/14/20 11:11 Ur Squamous Epith Cells Negative /HPF (NEGATIVE) 08/14/20 11:11 Ur Transition Epith Cell Few /HPF (NEGATIVE) 08/14/20 11:11 Urine Bacteria Trace /HPF (NEGATIVE) 08/14/20 11:11 Ur Culture Indicated? No/not indicated 08/14/20 11:11 Digoxin 0.34 ng/mL (0.9-2) L 08/09/20 14:01 Theophylline 3.4 ug/mL (10-20) L 08/09/20 14:01 Ethyl Alcohol mg/dL < 3 mg/dL (0-19.9) 08/09/20 14:01 SARS CoV-2 RNA Rapid DEANN Positive (NEGATIVE) A 08/09/20 15:10 Blood Type B POSITIVE 08/11/20 10:50 - Plan (1) Pneumonia due to COVID-19 virus Status: Acute Plan: BIPAP, SUPPLEMENTAL OXYGEN, NS WITH 20MEQ KCL, TPN, REMDESIVIR 100MG IV DAILY, SOLU-MEDROL 125 IV Q6H, ASCORBIC ACID 1500MG IV Q6H, CARDIZEM DRIP, FORTAZ 1G IV Q8H, LOVENOX 40MG SC BID, PEPCID 20MG IV Q12H, PROTONIX 40MG IV BID, IVERMECTIN, ATIVAN 1MG IV Q6H PRN, ZOFRAN 8MG IV Q6H PRN, THIAMINE 200MG IV BID,XOPENEX NEB TX QID, BROVANA NEB TX BID, PULMICORT NEBS BID, MUCOMYST IN NEB TX QID, AND THE POTASSIUM AND MAGNESIUM PROTOCOLS. (2) COVID-19 Status: Acute (3) Hypoxia Status: Acute (4) Dysphagia Status: Acute Qualifiers: Dysphagia type: unspecified Qualified Code(s): R13.10 - Dysphagia, un specified Plan: SPEECH THERAPY CONSULT (5) Atrial fibrillation with RVR Status: Chronic (6) COPD exacerbation Status: Chronic
--- NOTE | 2020-09-24 13:12 | PCM.PROG ---
Progress Note - Progress Note for Day of Date of Exam: 08/14/20 - Subjective Subjective: WAS ADMITTED FOR TREATMENT OF PNEUMONIA DUE TO COVID-19, HYPOXIA, RESPIRATORY FAILURE, AND A-FIB. HE HAS A HISTORY OF COPD AND CHF. PATIENT ALSO HAS A SUSPECTED LUNG CANCER THAT WAS REPORTED ON HIS LAST VISIT. TODAY, HE IS LYING IN BED WITH EYES CLOSED ON MORNING ROUNDS. HE DOES NOT AWAKEN TO VERBAL STIMULI, BUT MOANS TO PAINFUL STIMULI THIS MORNING. STAFF REPORTS THAT HE HAS BEEN VERY AGITATED THIS MORNING. HE HAS BEEN PULLING AT IV LINES AND MAHAJAN. HE WAS GIVEN A DOSE OF HALDOL PRIOR TO ROUNDS.. HE IS CURRENTLY ON THE BIPAP WITH FI02 AT 50%. HIS SATURATIONS HAVE BEEN 85-93% THIS MORNING AND THROUGHOUT THE NIGHT. HE DID DROP TO THE 60s AT ONE POINT LAST NIGHT. ON EXAMINATION, HEART IS REGULAR IN RATE AND RHYTHM. BILATERAL LUNGS ARE NOTED WITH SCATTERED WHEEZING THROUGOUT. ABDOMEN IS ROUND, SOFT, AND NON-TENDER WITH NORMAL BOWEL SOUNDS NOTED IN ALL QUADRANTS. BILATERAL LOWER EXTREMITIES ARE NOTED WITH 1+ PITTING EDEMA. HIS VITALS THIS MORNING ARE: 97.8-137-32-90%-144/85. LABS WERE OBTAINED. ABNORMAL LAB VALUES INCLUDE THE FOLLOWING: WBC 17.4, SODIUM 152, CHLORIDE 113, CARBON DIOXIDE 35.8, BUN 22, GLUCOSE 432, AST 6, CRP 19.90, BNP 294, TOTAL PROTEIN 6.3, ALBUMIN 3.0. AN ABG WAS OBTAINED THIS MORNING AND REVEALED: PH 7.410, PC02 63, P02 85, HC03 39.9, 02 SAT 96, BASE EXCESS 12.7, A-A GRADIENT 371, FI02 75. BLOOD CULTURES REVEAL GROWTH OF ACINETOBACTER LWOFFII. A CHEST XRAY WAS OBTAINED AND REVEALED: The heart remains enlarged. No congestive heart failure is noted. Bilateral perihilar infiltrates are unchanged. No pleural effusions are identified. Bony thorax is unremarkable. HE IS CURRENTLY RECEIVING NS WITH 20MEQ KCL AT 125 ML/HR, REMDESIVIR 100MG IV DAILY, SOLU-MEDROL 125 IV Q6H, ASCORBIC ACID 1500MG IV Q6H, CARDIZEM DRIP, FORTAZ 1G IV Q8H, LOVENOX 40MG SC BID, PEPCID 20MG IV Q12H, PROTONIX 40MG IV BID, IVERMECTIN, ATIVAN 1MG IV Q6H PRN, ZOFRAN 8MG IV Q6H PRN, THIAMINE 200MG IV BID,XOPENEX NEB TX QID, BROVANA NEB TX BID, PULMICORT NEBS BID, MUCOMYST IN NEB TX QID, AND THE POTASSIUM AND MAGNESIUM PROTOCOLS. WE WILL CONTINUE WITH CURRENT PLAN OF CARE TODAY AND ADD PHENOBARBITAL NEEDED. WE HAVE NOTIFIED PATIENTS SON ABOUT A DECLINE IN HIS CONDITION. OTHERWISE, WE PLAN TO FOLLOW UP WITH AM LABS AND CHEST XRAY AND CONTINUE TO MONITOR. TIME SPENT ON CLINICAL ASSESSMENT, REVIEWING LABS AND IMAGING, DECISION MAKING AND DOCUMENTATION GREATER THAN 75 MINUTES. - Past Medical Family Social History Past Med/Fam/Surg Hx: No changes since H&P Allergies: Allergies levofloxacin [From Levaquin] Adverse Reaction (Verified 07/21/20 16:52) - Review of Systems ROS: No change since H&P - Vital Signs and I&O's Vital Signs: Temperature 97.5 F Pulse Rate [Right Brachial] 89 Pulse Rate 40 Respiratory Rate 10 Blood Pressure [Left Arm] 147/68 Blood Pressure 40/25 O2 Sat by Pulse Oximetry 70 - Physical Exam Oriented: Person, Place Eyes: Normal Ear: Normal Nose: Normal Throat: Normal Respiratory: Generalized, Diminished, Wheezes Cardiovascular: Irregular : Normal Auscultation: Bowel Sounds: Normal Palpation: Normal Tenderness: Normal Skin: Normal Musculoskeletal: Normal Psychiatric: Normal Mood Description: Calm Affect: Normal Speech Pattern: Delayed - Laboratory and Diagnostics Result Diagrams: 08/14/20 04:28 08/14/20 19:16 Labs: 08/09/20 14:01 Blood Blood Culture - Final 08/09/20 13:46 Blood Blood Culture - Final Acinetobacter Lwoffii Laboratory WBC 17.4 X10^3/uL (3.6-10.0) H 08/14/20 04:28 RBC 4.92 X10^6/uL (4.7-6.0) 08/14/20 04:28 Hgb 14.6 g/dL (13.5-18.0) 08/14/20 04:28 Hct 45.7 % (42.0-54.0) 08/14/20 04:28 MCV 92.8 fL (80.0-100.0) 08/14/20 04:28 MCH 29.6 pg (27.0-34.0) 08/14/20 04:28 MCHC 31.9 g/dL (33.0-35.0) L 08/14/20 04:28 RDW 14.6 % (11.6-16.5) 08/14/20 04:28 Plt Count 226 X10^3/uL (150.0-450.0) 08/14/20 04:28 Plt Count Comment Adequate (ADEQUATE) 08/14/20 04:28 MPV 8.7 fL (7.4-11.0) 08/14/20 04:28 Neut % (Auto) 91.5 % (42.0-75.0) H 08/14/20 04:28 Lymph % (Auto) 3.6 % (21.0-51.0) L 08/14/20 04:28 [place] % (Auto) 4.8 % (0.0-13.0) 08/14/20 04:28 Eos % (Auto) 0.0 % (0.9-2.9) L 08/14/20 04:28 Baso % (Auto) 0.1 % (0.2-1.0) L 08/14/20 04:28 Neut # (Auto) 15.9 x10^3/uL (2.2-4.8) H 08/14/20 04:28 Lymph # (Auto) 0.6 X10^3/uL (1.3-2.9) L 08/14/20 04:28 [place] # (Auto) 0.8 x10^3/uL (0.3-0.8) 08/14/20 04:28 Eos # (Auto) 0.0 x10^3/uL (0.0-0.2) 08/14/20 04:28 Baso # (Auto) 0.0 X10^3/uL (0.0-0.1) 08/14/20 04:28 Absolute Nucleated RBC 0.0 /100WBC 08/14/20 04:28 Total Counted 100 08/14/20 04:28 Neutrophils % (Manual) 92 % (39-76) H 08/14/20 04:28 Band Neutrophils % 4 % (0-10) 08/14/20 04:28 Lymphocytes % (Manual) 2 % (13-43) L 08/14/20 04:28 Monocytes % (Manual) 2 % (4-9) L 08/14/20 04:28 Plt Morphology Comment Normal (NORMAL) 08/14/20 04:28 RBC Morphology Normal (NORMAL) 08/14/20 04:28 PT 20.9 SECONDS (11.8-14.3) 08/10/20 16:56 INR Target Range - 08/10/20 16:56 INR 1.87 (0.8-1.3) H 08/10/20 16:56 Sample Site Rrad 08/14/20 05:06 ABG pH 7.410 (7.35-7.45) 08/14/20 05:06 ABG pCO2 63.0 mmHg (35.0-45.0) H* 08/14/20 05:06 ABG pO2 85.0 mmHg (80.0-100.0) 08/14/20 05:06 ABG HCO3 39.9 mmol/L (22-26) H* 08/14/20 05:06 ABG O2 Saturation 96.0 % (90-100) 08/14/20 05:06 ABG Base Excess 12.7 mmol/L (-2.0-2.0) H 08/14/20 05:06 Wyatt Test Pos 08/14/20 05:06 A-a Gradient 371.0 mmHg 08/14/20 05:06 FiO2 75.0 08/14/20 05:06 Blood Gas Comments Dora abg well-mtf 08/14/20 05:06 Sodium 152 mmol/L (136-145) H* 08/14/20 04:28 Corrected Sodium 160 mmol/L (136-145) H 08/14/20 04:28 Potassium 3.7 mmol/L (3.5-5.1) 08/14/20 04:28 Chloride 113 mmol/L (98-107) H 08/14/20 04:28 Carbon Dioxide 35.8 mmol/L (21-32) H 08/14/20 04:28 BUN 22 mg/dL (7-18) H 08/14/20 04:28 Creatinine 0.75 mg/dL (0.70-1.30) 08/14/20 04:28 Est GFR (MDRD) Af Amer > 60 (>60) 08/14/20 04:28 Est GFR (MDRD) Non-Af > 60 (>60) 08/14/20 04:28 Glucose 484 mg/dL (65-99) H 08/14/20 19:16 POC Glucose (mg/dL) 412 mg/dL (65-99) H 08/14/20 18:49 Lactic Acid 1.4 mmol/L (0.4-2.0) 08/09/20 14:01 Calcium 10.1 mg/dL (8.5-10.1) 08/14/20 04:28 Corrected Calcium 10.9 mg/dL (8.5-10.1) H 08/14/20 04:28 Phosphorus 2.8 mg/dL (2.6-4.7) 08/14/20 04:28 Magnesium 2.5 mg/dL (1.7-2.9) 08/14/20 04:28 Ferritin 874 ng/mL (26-388) H 08/09/20 14:01 Total Bilirubin 0.40 mg/dL (0.2-1.0) 08/14/20 04:28 AST 6 Units/L (15-37) L 08/14/20 04:28 ALT 18 Units/L (12-78) 08/14/20 04:28 Alkaline Phosphatase 54 Units/L (46-116) 08/14/20 04:28 Lactate Dehydrogenase 217 Units/L (85-227) 08/09/20 14:01 Troponin I < 0.02 ng/mL (0-1.5) 08/09/20 14:01 C-Reactive Protein 19.90 mg/L (0-3.0) H 08/14/20 04:28 B-Natriuretic Peptide 294 pg/mL (0-79) H 08/14/20 04:28 Total Protein 6.3 g/dL (6.4-8.2) L 08/14/20 04:28 Albumin 3.0 g/dL (3.4-5.0) L 08/14/20 04:28 Globulin 3.3 g/dL (2.5-4.5) 08/14/20 04:28 Albumin/Globulin Ratio 0.9 Ratio (1.1-2.1) L 08/14/20 04:28 Prealbumin 15.6 mg/dL (18-35.7) L 08/13/20 05:11 Triglycerides 121 mg/dL (0-150) 08/14/20 04:28 Specimen Type Catherized urine 08/14/20 11:11 Urine Color Yellow (YELLOW) 08/14/20 11:11 Urine Appearance Clear (CLEAR) 08/14/20 11:11 Urine pH 5.0 (5.0 - 8.0) 08/14/20 11:11 Ur Specific [place] 1.010 (1.000-1.030) 08/14/20 11:11 Urine Protein Negative (NEGATIVE) 08/14/20 11:11 Urine Glucose (UA) 4+ (NEGATIVE) 08/14/20 11:11 Urine Ketones 1+ (NEGATIVE) 08/14/20 11:11 Urine Occult Blood 1+ (NEGATIVE) 08/14/20 11:11 Urine Nitrite Negative (NEGATIVE) 08/14/20 11:11 Urine Bilirubin Negative (NEGATIVE) 08/14/20 11:11 Urine Urobilinogen Normal (NORMAL) 08/14/20 11:11 Ur Leukocyte Esterase Negative (NEGATIVE) 08/14/20 11:11 Urine RBC 0-2 /HPF (0-3) 08/14/20 11:11 Urine WBC 0-2 /HPF (0-5) 08/14/20 11:11 Ur Squamous Epith Cells Negative /HPF (NEGATIVE) 08/14/20 11:11 Ur Transition Epith Cell Few /HPF (NEGATIVE) 08/14/20 11:11 Urine Bacteria Trace /HPF (NEGATIVE) 08/14/20 11:11 Ur Culture Indicated? No/not indicated 08/14/20 11:11 Digoxin 0.34 ng/mL (0.9-2) L 08/09/20 14:01 Theophylline 3.4 ug/mL (10-20) L 08/09/20 14:01 Ethyl Alcohol mg/dL < 3 mg/dL (0-19.9) 08/09/20 14:01 SARS CoV-2 RNA Rapid DEANN Positive (NEGATIVE) A 08/09/20 15:10 Blood Type B POSITIVE 08/11/20 10:50 - Plan (1) Pneumonia due to COVID-19 virus Status: Acute Plan: BIPAP, SUPPLEMENTAL OXYGEN, NS WITH 20MEQ KCL, TPN, REMDESIVIR 100MG IV DAILY, SOLU-MEDROL 125 IV Q6H, ASCORBIC ACID 1500MG IV Q6H, CARDIZEM DRIP, FORTAZ 1G IV Q8H, LOVENOX 40MG SC BID, PEPCID 20MG IV Q12H, PROTONIX 40MG IV BID, IVERMECTIN, ATIVAN 1MG IV Q6H PRN, ZOFRAN 8MG IV Q6H PRN, THIAMINE 200MG IV BID,XOPENEX NEB TX QID, BROVANA NEB TX BID, PULMICORT NEBS BID, MUCOMYST IN NEB TX QID, AND THE POTASSIUM AND MAGNESIUM PROTOCOLS. (2) COVID-19 Status: Acute (3) Hypoxia Status: Acute (4) Dysphagia Status: Acute Qualifiers: Dysphagia type: unspecified Qualified Code(s): R13.10 - Dysphagia, uns pecified Plan: SPEECH THERAPY CONSULT (5) Atrial fibrillation with RVR Status: Chronic (6) COPD exacerbation Status: Chronic
== END 2020-08-15 12:48 | disposition expired | DRG 177 ==
LOC: ER 13:34 → ICU 15:46
PROVIDERS: ADMIT Obstetrics & Gynecology Obstetrics; ATTEND Internal Medicine
DX: F10.10 Alcohol abuse, uncomplicated; I48.91 Unspecified atrial fibrillation; R13.19 Other dysphagia; J96.90 Respiratory failure, unspecified, unspecified whether with hypoxia or hypercapnia; R26.81 Unsteadiness on feet; F10.139 Alcohol abuse with withdrawal, unspecified; R91.8 Other nonspecific abnormal finding of lung field; E66.9 Obesity, unspecified; D68.9 Coagulation defect, unspecified; J12.82 Pneumonia due to coronavirus disease 2019; U07.1 COVID-19; F41.9 Anxiety disorder, unspecified; J44.9 Chronic obstructive pulmonary disease, unspecified; I87.2 Venous insufficiency (chronic) (peripheral)